=== PATIENT | male | born 1950 | race Caucasian/White ===

== ENCOUNTER → 2017-11-03 | Outpatient (CLI) | payer BC, OTHER ==
--- NOTE | 2017-11-03 09:04 | Diagnostic Imaging Report ---
PROCEDURE: MR imaging cervical spine without contrast. TECHNIQUE: Multiplanar, multisequence MR imaging of the cervical spine was performed without contrast. INDICATION: Neck pain and radiculopathy. Comparison is made with prior MRI from 04/01/2016. Curvature of the cervical spine is normal. Minimal retrolisthesis C4 on C5 is noted similar to prior exam. The marrow signal intensity is unremarkable. Joint degenerative disc disease of variable disc space narrowing and desiccation is again noted similar to prior exam. Cervical cord demonstrates normal signal intensity and normal morphology. C2-C3: No central canal or neural foraminal stenosis is identified. C3-C4: Minimal endplate osteophytes are present with no central canal or neuroforaminal stenosis is seen. C4-C5: Disc osteophyte complex does flatten the ventral thecal sac. No central canal stenosis is seen. There does appear to be spbu-pt-plaezbwg bilateral neuroforaminal stenosis. C5-C6: Broad-based disc/osteophyte complex flattens the ventral thecal sac. There is also uncovertebral joint degenerative change resulting in significant right neuroforaminal stenosis. Mild left neuroforaminal stenosis is seen. C6-C7: Broad-based disc/osteophyte complex indents the ventral thecal sac but central canal is patent. There is moderate bilateral neuroforaminal stenosis. C7-T1: Unremarkable. IMPRESSION: Cervical spondylosis with multilevel neuroforaminal stenosis described above by level above. No central canal stenosis is identified. Dictated by: Dictated on workstation # [id number]
== END ==
LOC: RAD 07:37
PROVIDERS: ATTEND Pain Medicine Interventional Pain Medicine
DX: M48.02 Spinal stenosis, cervical region (principal); M50.10 Cervical disc disorder with radiculopathy, unspecified cervical region; M47.22 Other spondylosis with radiculopathy, cervical region
CPT/HCPCS: 72141

== ENCOUNTER 2018-12-15 14:05 | Outpatient (RCR) | payer OTHER | END 2018-12-22 17:00 | disposition home or self-care (01) | PROVIDERS: ATTEND Nurse Practitioner Family | DX: M79.645 Pain in left finger(s) (principal); Z98.890 Other specified postprocedural states ==

== ENCOUNTER 2019-09-27 05:40 | Outpatient (CLI) | payer OTHER ==
[~2019-09-27] VITALS: Ht 165.1 cm; Wt 78.6 kg
[2019-09-27] MEDS ORDERED: MELO15TA39 PO (14:54)
[2019-10-01] MEDS ORDERED: HYDR-3812 PO (08:11)
[2019-10-01] MEDS ORDERED: HYOS0.1283 SL (09:24)
== END 2019-09-27 14:55 | disposition home or self-care (01) ==
LOC: PREOP 05:40
PROVIDERS: ATTEND Internal Medicine
DX: Z01.818 Encounter for other preprocedural examination (principal)

== ENCOUNTER 2020-03-25 08:31 | Emergency (ER) | payer OTHER ==
[~2020-03-25] VITALS: Ht 167 cm; Wt 76.1 kg
[~2020-03-25 08:31] MED LIST: ACHD5005 PO; HYOS0.1283 SL; MELO15TA39 PO
--- NOTE | 2020-03-25 09:32 | ED Upper Extremity ---
General Chief Complaint: Laceration Stated Complaint: R ELBOW LAC Nursing Triage Note: ARRIVED VIA AMB TO ROOM 10. STATES ABOUT 2 WEEKS AGO HE HAD SURGERY ON HIS RIGHT ELBOW. STICHES WERE OUT. LAST NIGHT AT APPX 8PM HE FELL OPENING UP SUTURE SITE. Nursing Sepsis Screen: No Definite Risk Source: patient Exam Limitations: no limitations (FABIOLA MCDONALD) History of Present Illness Date Seen by Provider: Mar 25, 2020 Time Seen by Provider: 09:08 (FABIOLA MCDONALD) Initial Comments Here with report of wound opening up to the right elbow after falling last night at about 8 PM. States that he was really tired but got up to go to the bathroom and fell onto his right arm. He had surgery on the arm 2 weeks ago for carpal tunnel release. Sutures had been placed but were removed and were doing fine. He has had no wound problems. Did have recent surgery on the left arm for the same thing and has sutures in place there. No problems with those wounds. Denies hitting his head or significant injury during the fall except for the wound opened up. He covered that with a dressing and went ahead and went to bed. Arrives here this morning due to the wound being opened. Denies foul-smelling drainage or significant pain. Follows with Dr. Serafin neff for these surgical procedures and has appointment with him on April 06. Currently on cephalexin 4 times a day after the other surgery. Onset: yesterday Severity: mild Pain/Injury Location: right elbow Method of Injury: fell, other (wound dehiscence) Modifying Factors: Improves With Rest (MARIA LUISA MCGREGOR MD) Allergies and Home Medications Allergies Uncoded Allergies: steroid eye drop (Allergy, Unknown, affected nervous system, 09/27/19) Home Medications Hydrocodone Bit/Acetaminophen 1 Each Tablet, 1 TAB PO Q4-6HR, (Reported) Hyoscyamine Sulfate 0.125 Mg Tab.subl, 0.125 MG SL DAILY Prescribed by: JENNIE GALICIA on 10/01/19 0924 Meloxicam 15 Mg Tablet, 15 MG PO DAILY, (Reported) Patient Home Medication List Home Medication List Reviewed: Yes (MARIA LUISA MCGREGOR MD) Review of Systems Constitutional: No chills, No fever Respiratory: no symptoms reported Cardiovascular: no symptoms reported Musculoskeletal: no symptoms reported Skin: see HPI, change in color (few scattered bruises to the right arm), lesions (MARIA LUISA MCGREGOR MD) Past Qcgqsul-Epqekv-Srwtgv Hx Past Med/Social Hx: Reviewed Nursing Past Med/Soc Hx (MARIA LUISA MCGREGOR MD) Patient Social History Alcohol Use: Occasionally Uses Alcohol Beverage of Choice: Beer Recreational Drug Use: No Smoking Status: Current Someday Smoker Recent Foreign Travel: No Contact w/Someone Who Travel: No Recent Infectious Disease Expo: No Recent Hopitalizations: No (FABIOLA MCDONALD [facility]) Seasonal Allergies Seasonal Allergies: No ([facility] Past Medical History Surgeries: Yes (hiatal hernia, left hand sx) Gallbladder, Orthopedic Respiratory: No Cardiac: No Neurological: No Genitourinary: No Gastrointestinal: No Musculoskeletal: Yes Arthritis, Chronic Back Pain Endocrine: No HEENT: No Cancer: No Psychosocial: No Integumentary: No Blood Disorders: No (FABIOLA MCDONALD [facility]) Surgeries: Yes Orthopedic (MARIA LUISA MCGREGOR MD) Physical Exam Vital Signs Vital Signs - First Documented 03/25/20 08:50 Temp 36.3 Pulse 72 Resp 16 B/P (MAP) 174/98 (123) Pulse Ox 98 O2 Delivery Room Air (MARIA LUISA MCGREGOR MD) Vital Signs Capillary Refill : Less Than 3 Seconds (FABIOLA MCDONALD [facility]) Height, Weight, BMI Height: '" Weight: lbs. oz. kg; 27.00 BMI Method: ([facility] General Appearance: WD/WN, no apparent distress Cardiovascular: regular rate, rhythm, no murmur Respiratory: lungs clear, normal breath sounds Elbow/Forearm: Right, soft tissue tenderness (4 cm wound dehiscence to the m edial aspect right elbow at previous surgical site. Not bleeding. No obvious signs of infection.) (MARIA LUISA MCGREGOR MD) Procedures/Interventions Wound Location: Upper Extremities Wound Length (cm): 4 Wound's Depth, Shape: linear, sub Q Wound Explored: no foreign body removed Irrigated w/ Saline (ccs): 1000 Betadine Prep?: No Anesthesia: 1% Lidocaine Volume Anesthetic (ccs): 8 Wound Debrided: minimal Suture: Ethlion Suture Size: 4-0 Number of Sutures: 3 Sterile Dressing Applied?: Yes Progress Pt tolerated procedure well. No complications. Minimal bleeding during the procedure which was controlled with applying pressure. Triple antibiotic ointment was applied to wound after suturing and sterile dressing was applied. (FABIOLA MCDONALD) Progress/Results/Core Measures Results/Orders Vital Signs/I&O 03/25/20 08:50 Temp 36.3 Pulse 72 Resp 16 B/P (MAP) 174/98 (123) Pulse Ox 98 O2 Delivery Room Air (MARIA LUISA MCGREGOR MD) Blood Pressure Mean: 123 Progress Progress Note : Progress Note Seen and evaluated. Wound evaluated. I did confirm that he is on cephalexin 4 times a day and has just started that dosing. He has several days left. Plan is to achieve anesthesia and flush the wound copiously with sterile saline and loosely close it given that it has been open for 12 hours. Wound closed by med student under my direct supervision. Tolerated procedure well with no complications. Discharged home with return precautions. Patient verbalize understanding instructions and agreement with plan. (MARIA LUISA MCGREGOR MD) Departure Impression Primary Impression: Surgical wound dehiscence Qualified Codes: T81.31XA - Disruption of external operation (surgical) wound, not elsewhere classified, initial encounter Disposition: 01 HOME, SELF-CARE Condition: Improved Departure-Patient Inst. Decision time for Depature: 09:58 (MARIA LUISA MCGREGOR MD) Referrals: JENNIE GALICIA MD (PCP/Family) Primary Care Physician Patient Instructions: Laceration Repair With Stitches (DC) Add. Discharge Instructions: All discharge instructions reviewed with patient and/or family. Voiced understanding. Sutures out in 10-12 days. You may have that done at Dr. Stokes's office or return to the emergency department. The wound was closed loosely to allow for drainage if infection ensues. You may gently wash wound once or twice daily and apply a light coat of antibiotic and cover with dressing. Keep this covered for the next week or so at least to allow for healing. Return for worse pain, swelling, redness, foul-smelling drainage, fever, red streaks up the arm or other concerns as needed. You should call Dr. Stokes to let him know that the wound opened up and let him know that it was closed loosely. Follow-up with him as indicated. FABIOLA MCDONALD [facility] Mar 25, 2020 09:32 MARIA LUISA MCGREGOR MD Mar 25, 2020 09:57
--- NOTE | 2020-03-25 10:09 | NUR ---
DENIES NEEDS AT THIS TIME.
[2020-03-25] MEDS ORDERED: TETANUS,DIPTH,PERTUSS P/F (BOOSTRIX) 0.5 ML VIAL IM ONE (10:30)
[2020-03-25 10:34] VITALS: BP 174/98
== END 2020-03-25 10:34 | disposition home or self-care (01) ==
LOC: EDUNIT# 08:31 → ER 08:32
DX: T81.33XA Disruption of traumatic injury wound repair, initial encounter (principal); G89.29 Other chronic pain; M54.9 Dorsalgia, unspecified; F17.200 Nicotine dependence, unspecified, uncomplicated; Z23 Encounter for immunization; Z88.8 Allergy status to other drugs, medicaments and biological substances; W18.39XA Other fall on same level, initial encounter
CPT/HCPCS: 12032; 90715

== ENCOUNTER 2021-02-18 15:57 | Observation (INO) | payer MEDICARE, OTHER ==
[~2021-02-18] VITALS: Ht 167.7 cm; Wt 71.3 kg
[2021-02-18] MEDS ORDERED: ASPIRIN 81 MG CHEW (CHILDREN'S ASA) PO ONE (16:00)
[2021-02-18 16:12] LABS: BASOPHILS % (AUTO) 1 % (0-10); EOSINOPHILS # (AUTO) 0.3 10^3/uL (0.0-0.3); EOSINOPHILS % (AUTO) 4 % (0-10); HEMATOCRIT 42 % (40-54); HEMOGLOBIN 14.5 g/dL (13.3-17.7); LYMPHOCYTES # (AUTO) 2.3 10^3/uL (1.0-4.0); LYMPHOCYTES % (AUTO) 28 % (12-44); MEAN CORPUSCULAR HEMOGLOBIN 33 pg (25-34); MEAN CORPUSCULAR HGB CONC 34 g/dL (32-36); MEAN CORPUSCULAR VOLUME 95 fL (80-99); MEAN PLATELET VOLUME 11.6 fL (9.0-12.2); MONOCYTES # (AUTO) 0.7 10^3/uL (0.0-1.0); MONOCYTES % (AUTO) 9 % (0-12); NEUTROPHILS # (AUTO) 4.7 10^3/uL (1.8-7.8); NEUTROPHILS % (AUTO) 58 % (42-75); PLATELET COUNT 172 10^3/uL (130-400); WHITE BLOOD COUNT 8.1 10^3/uL (4.3-11.0)
[2021-02-18] MEDS ORDERED: NITROGLYCERIN 0.4 MG SL TABS BTL 25'S SL ONE (16:13)
--- NOTE | 2021-02-18 16:14 | ED Chest Pain ---
General Stated Complaint: CHEST TIGHTNESS/TIRED Source: patient Exam Limitations: no limitations History of Present Illness Date Seen by Provider: Feb 18, 2021 Time Seen by Provider: 16:10 Initial Comments With fatigue and left-sided chest discomfort. He wakes up at about 130 every morning because he goes to work at [employer] at 430. 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 He has some persistent dull pain on the left side of his chest. No personal history of heart disease. Timing/Duration: 1-3 hours Severity/Quality: moderate Location: central Radiation: no radiation ASA po AIRPORT RAMP ATTENDANT: No NTG SL AIRPORT RAMP ATTENDANT: No Allergies and Home Medications Allergies Uncoded Allergies: steroid eye drop (Allergy, Unknown, affected nervous system, 09/27/19) Home Medications Hydrocodone Bit/Acetaminophen 1 Each Tablet, 1 TAB PO Q4-6HR, (Reported) Hyoscyamine Sulfate 0.125 Mg Tab.subl, 0.125 MG SL DAILY Prescribed by: JENNIE GALICIA on 10/01/19 0924 Meloxicam 15 Mg Tablet, 15 MG PO DAILY, (Reported) Patient Home Medication List Home Medication List Reviewed: Yes Review of Systems Review of Systems Constitutional: see HPI EENTM: No Symptoms Reported Respiratory: No Symptoms Reported Cardiovascular: See HPI, Chest Pain Gastrointestinal: No Symptoms Reported Genitourinary: No Symptoms Reported Musculoskeletal: no symptoms reported Skin: no symptoms reported Psychiatric/Neurological: No Symptoms Reported Endocrine: No Symptoms Reported Hematologic/Lymphatic: No Symptoms Reported Past Cmdklvf-Ttlbgg-Qtcxwg Hx Seasonal Allergies Seasonal Allergies: No Past Medical History Surgeries: Yes Orthopedic Respiratory: No Cardiac: No Neurological: No Genitourinary: No Gastrointestinal: No Musculoskeletal: Yes Arthritis, Chronic Back Pain Endocrine: No HEENT: No Cancer: No Psychosocial: No Integumentary: No Blood Disorders: No Physical Exam Vital Signs Capillary Refill : Height, Weight, BMI Height: '" Weight: lbs. oz. kg; 27.00 BMI Method: General Appearance: No Apparent Distress, WD/WN HEENT: PERRL/EOMI, TMs Normal Respiratory: No Accessory Muscle Use, No Respiratory Distress Cardiovascular: Regular Rate, Rhythm, Normal Peripheral Pulses Gastrointestinal: Normal Bowel Sounds, Non Tender, Soft Extremity: Normal Capillary Refill, Normal Inspection Neurologic/Psychiatric: Alert, Oriented x3 Skin: Normal Color, Warm/Dry Procedures/Interventions Suture Size: 4-0 Progress/Results/Core Measures Results/Orders Lab Results Laboratory Tests Test 02/18/21 16:00 Range/Units White Blood Count 8.1 4.3-11.0 10^3/uL Red Blood Count 4.45 4.30-5.52 10^6/uL Hemoglobin 14.5 13.3-17.7 g/dL Hematocrit 42 40-54 % Mean Corpuscular Volume 95 80-99 fL Mean Corpuscular Hemoglobin 33 25-34 pg Mean Corpuscular Hemoglobin Concent 34 32-36 g/dL Red Cell Distribution Width 13.1 10.0-14.5 % Platelet Count 172 130-400 10^3/uL Mean Platelet Volume 11.6 9.0-12.2 fL Immature Granulocyte % (Auto) 0 % Neutrophils (%) (Auto) 58 42-75 % Lymphocytes (%) (Auto) 28 12-44 % Monocytes (%) (Auto) 9 0-12 % Eosinophils (%) (Auto) 4 0-10 % Basophils (%) (Auto) 1 0-10 % Neutrophils # (Auto) 4.7 1.8-7.8 10^3/uL Lymphocytes # (Auto) 2.3 1.0-4.0 10^3/uL Monocytes # (Auto) 0.7 0.0-1.0 10^3/uL Eosinophils # (Auto) 0.3 0.0-0.3 10^3/uL Basophils # (Auto) 0.0 0.0-0.1 10^3/uL Immature Granulocyte # (Auto) 0.0 0.0-0.1 10^3/uL Prothrombin Time 13.2 12.2-14.7 SEC INR Comment 1.0 0.8-1.4 Activated Partial Thromboplast Time 28 24-35 SEC D-Dimer 0.37 0.00-0.49 UG/ML Sodium Level 137 135-145 MMOL/L Potassium Level 4.3 3.6-5.0 MMOL/L Chloride Level 105 98-107 MMOL/L Carbon Dioxide Level 19 L 21-32 MMOL/L Anion Gap 13 5-14 MMOL/L Blood Urea Nitrogen 9 7-18 MG/DL Creatinine 0.84 0.60-1.30 MG/DL Estimat Glomerular Filtration Rate > 60 BUN/Creatinine Ratio 11 Glucose Level 97 70-105 MG/DL Calcium Level 8.6 8.5-10.1 MG/DL Corrected Calcium 8.6 8.5-10.1 MG/DL Magnesium Level 2.0 1.6-2.4 MG/DL Total Bilirubin 0.5 0.1-1.0 MG/DL Aspartate Amino Transf (AST/SGOT) 19 5-34 U/L Alanine Aminotransferase (ALT/SGPT) 22 0-55 U/L Alkaline Phosphatase 44 40-136 U/L Myoglobin 42.4 10.0-92.0 NG/ML Troponin I < 0.028 <0.028 NG/ML B-Type Natriuretic Peptide 28.3 <100.0 PG/ML Total Protein 6.9 6.4-8.2 GM/DL Albumin 4.0 3.2-4.5 GM/DL My Orders Orders - PRASANTH ALEXIS CLERICAL ADVISER Cbc With Automated Diff (02/18/21 15:59) Magnesium (02/18/21 15:59) Chest 1 View, Ap/Pa Only (02/18/21 15:59) Ekg Tracing (02/18/21 15:59) Comprehensive Metabolic Panel (02/18/21 15:59) Myoglobin Serum (02/18/21 15:59) Protime With Inr (02/18/21 15:59) Partial Thromboplastin Time (02/18/21 15:59) O2 (02/18/21 15:59) Monitor-Rhythm Ecg Trace Only (02/18/21 15:59) Lipid Panel (02/19/21 06:00) Ed Iv/Invasive Line Start (02/18/21 15:59) BNP (02/18/21 15:59) Fibrin Degradation Products (02/18/21 15:59) Troponin I (02/18/21 15:59) Aspirin Chewable Tablet (Baby Aspirin Ch (02/18/21 16:00) Nitroglycerin 0.4 Mg Btl 25's (Nitrostat (02/18/21 16:13) Nitroglycerin 0.4 Mg Btl 25's (Nitrostat (02/18/21 16:45) Clopidogrel Tablet (Plavix Tablet) (02/18/21 17:00) Enoxaparin Injection (Lovenox Injection) (02/18/21 17:00) Medications Given in ED Current Medications Medications Dose Ordered Sig/Santino Route Start Time Stop Time Status Last Admin Dose Admin Aspirin 324 mg ONCE ONCE PO 02/18/21 16:00 02/18/21 16:01 DC 02/18/21 16:15 324 MG Nitroglycerin 0.4 mg STK-MED ONCE SL 02/18/21 16:13 02/18/21 16:15 DC 02/18/21 16:17 0.4 MG Departure Communication (Admissions) His chest pain is resolved after 2 sublingual nitroglycerin. Will admit after discussion with Dr. Nguyễn, stress test in the morning. Impression Primary Impression: Chest pain Disposition: ADMITTED INPATIENT Condition: Stable Admissions Decision to Admit Reason: Admit from ER (General) Decision to Admit/Date: Feb 18, 2021 Time/Decision to Admit Time: 17:02 Departure-Patient Inst. Referrals: JENNIE GALICIA MD (PCP/Family) Primary Care Physician PRASANTH ALEXIS APRN Feb 18, 2021 16:14
[2021-02-18 16:24] LABS: PROTHROMBIN TIME PATIENT 13.2 SEC (12.2-14.7)
[2021-02-18 16:28] LABS: CHLORIDE 105 MMOL/L (98-107); POTASSIUM 4.3 MMOL/L (3.6-5.0); SODIUM 137 MMOL/L (135-145)
[2021-02-18 16:29] LABS: CALCIUM 8.6 MG/DL (8.5-10.1)
[2021-02-18 16:30] LABS: GLUCOSE 97 MG/DL (70-105); TOTAL PROTEIN 6.9 GM/DL (6.4-8.2)
[2021-02-18 16:31] LABS: CARBON DIOXIDE 19 MMOL/L (21-32)
--- NOTE | 2021-02-18 16:31 | Diagnostic Imaging Report ---
INDICATION: Chest pain. COMPARISON: Prior examination from 10/26/2012. FINDINGS: Heart size is normal. No pleural effusion, pneumothorax or pneumonia. Mediastinum is unremarkable. IMPRESSION: No acute cardiopulmonary abnormality. Dictated by: Dictated on workstation # [id number]
[2021-02-18 16:32] LABS: BILIRUBIN,TOTAL 0.5 MG/DL (0.1-1.0)
[2021-02-18 16:34] LABS: ALKALINE PHOSPHATASE 44 U/L (40-136); CREATININE SERUM 0.84 MG/DL (0.60-1.30); GFR ESTIMATED > 60
[2021-02-18 16:35] LABS: BUN/CREATININE RATIO 11
[2021-02-18 16:37] LABS: ALANINE AMINOTRANSFERASE 22 U/L (0-55)
[2021-02-18] MEDS ORDERED: NITROGLYCERIN 0.4 MG SL TABS BTL 25'S SL PRN ×2 (16:45→21:15)
[2021-02-18] MEDS ORDERED: CLOPIDOGREL 300 MG (PLAVIX) TABLET PO ONE (17:00)
[2021-02-18] MEDS ORDERED: ENOXAPARIN 80 MG/0.8 ML (LOVENOX) SYR SC ONE (17:00)
[2021-02-18] MEDS ORDERED: LACTATED RINGERS 1,000 ML IV ONE (17:42)
[2021-02-18] MEDS: LACTATED RINGERS 1,000 ML IV SCH (17:46)
[2021-02-18] MEDS ORDERED: GABA-486 PO (18:13)
[2021-02-18 18:15] VITALS: BP 132/78
[2021-02-18 20:00] VITALS: BP 111/63
[2021-02-18] MEDS ORDERED: ONDANSETRON 4 MG/2 ML (SDV) Z0FRAN IVP PRN (21:15)
[2021-02-18] MEDS ORDERED: morphine INJ 4 MG/ML 1 ML (VIAL/SYRINGE) IV PRN (21:15)
[2021-02-19] VITALS (11 sets, daily range): BP systolic 106–150; BP diastolic 68–90
[2021-02-19] MEDS: LACTATED RINGERS 1,000 ML IV SCH ×2 (03:28→13:25)
[2021-02-19 05:15] LABS: TRIGLYCERIDES 95 MG/DL (<150); VLDL CHOLESTEROL 19 MG/DL (5-40)
[2021-02-19 05:19] LABS: CHOLESTEROL 177 MG/DL (< 200)
[2021-02-19 05:20] LABS: HDL CHOLESTEROL 51 MG/DL (40-60)
[2021-02-19] MEDS ORDERED: CATHETER FLUSH 10 ML SYR IV PRN (07:00)
[2021-02-19] MEDS ORDERED: ASPIRIN E.C. 81 MG (ECOTRIN) TAB PO SCH (09:00)
[2021-02-19] MEDS ORDERED: REGADENOSON 0.4 MG/5 ML SYR (LEXISCAN) IV ONE (09:00)
--- NOTE | 2021-02-19 09:55 | Consultation-Cardiology ---
HPI-Cardiology Cardiology Consultation Date of Consultation 02/19/21 Date of Admission Time Seen by Provider: 09:54 Indication: Chest pain HPI 70 years old gentleman with a history of hypertension, has been having increasing fatigue with exertion which has been worsening recently. Started to have chest pain yesterday afternoon, came into the emergency room for evaluation described the pain as dull in nature on the left side radiating to the back, has been having increasing dyspnea on exertion. Cardiac enzymes did not show any acute abnormality. Home Medications & Allergies Allergies: Uncoded Allergies: steroid eye drop (Allergy, Unknown, affected nervous system, 09/27/19) Home Medication List Reviewed: Yes QRZ-[id number]-Xgxtop Hx Patient Social History Marital Status: Employed/Student: employed Smoking Status: Current Everyday Smoker Recent Hopitalizations: No Have you traveled recently?: No Alcohol Use?: Yes Past Medical History Discussed below Family Medical History Family Medical Hx Noncontributory Review of Systems-General Review of Systems Constitutional: see HPI EENTM: see HPI, no symptoms reported Respiratory: see HPI; No cough; dyspnea on exertion; No hemoptysis, No orthopnea, No phlegm, No short of breath, No stridor, No wheezing, No other Cardiovascular: see HPI, chest pain; No edema, No Hx of Intervention, No palpitations, No syncope, No vascular heart diseas, No other Gastrointestinal: no symptoms reported, see HPI Genitourinary: no symptoms reported, see HPI Musculoskeletal: no symptoms reported Skin: no symptoms reported Psychiatric/Neurological: No Symptoms Reported Reviewed Test Results Reviewed Test Results Lab Laboratory Tests Test 02/18/21 16:00 02/18/21 21:05 02/19/21 04:13 Range/Units White Blood Count 8.1 4.3-11.0 10^3/uL Red Blood Count 4.45 4.30-5.52 10^6/uL Hemoglobin 14.5 13.3-17.7 g/dL Hematocrit 42 40-54 % Mean Corpuscular Volume 95 80-99 fL Mean Corpuscular Hemoglobin 33 25-34 pg Mean Corpuscular Hemoglobin Concent 34 32-36 g/dL Red Cell Distribution Width 13.1 10.0-14.5 % Platelet Count 172 130-400 10^3/uL Mean Platelet Volume 11.6 9.0-12.2 fL Immature Granulocyte % (Auto) 0 % Neutrophils (%) (Auto) 58 42-75 % Lymphocytes (%) (Auto) 28 12-44 % Monocytes (%) (Auto) 9 0-12 % Eosinophils (%) (Auto) 4 0-10 % Basophils (%) (Auto) 1 0-10 % Neutrophils # (Auto) 4.7 1.8-7.8 10^3/uL Lymphocytes # (Auto) 2.3 1.0-4.0 10^3/uL Monocytes # (Auto) 0.7 0.0-1.0 10^3/uL Eosinophils # (Auto) 0.3 0.0-0.3 10^3/uL Basophils # (Auto) 0.0 0.0-0.1 10^3/uL Immature Granulocyte # (Auto) 0.0 0.0-0.1 10^3/uL Prothrombin Time 13.2 12.2-14.7 SEC INR Comment 1.0 0.8-1.4 Activated Partial Thromboplast Time 28 24-35 SEC D-Dimer 0.37 0.00-0.49 UG/ML Sodium Level 137 135-145 MMOL/L Potassium Level 4.3 3.6-5.0 MMOL/L Chloride Level 105 98-107 MMOL/L Carbon Dioxide Level 19 L 21-32 MMOL/L Anion Gap 13 5-14 MMOL/L Blood Urea Nitrogen 9 7-18 MG/DL Creatinine 0.84 0.60-1.30 MG/DL Estimat Glomerular Filtration Rate > 60 BUN/Creatinine Ratio 11 Glucose Level 97 70-105 MG/DL Calcium Level 8.6 8.5-10.1 MG/DL Corrected Calcium 8.6 8.5-10.1 MG/DL Magnesium Level 2.0 1.6-2.4 MG/DL Total Bilirubin 0.5 0.1-1.0 MG/DL Aspartate Amino Transf (AST/SGOT) 19 5-34 U/L Alanine Aminotransferase (ALT/SGPT) 22 0-55 U/L Alkaline Phosphatase 44 40-136 U/L Myoglobin 42.4 10.0-92.0 NG/ML Troponin I < 0.028 < 0.028 <0.028 NG/ML B-Type Natriuretic Peptide 28.3 <100.0 PG/ML Total Protein 6.9 6.4-8.2 GM/DL Albumin 4.0 3.2-4.5 GM/DL Triglycerides Level 95 <150 MG/DL Cholesterol Level 177 < 200 MG/DL LDL Cholesterol Direct 115 1-129 MG/DL VLDL Cholesterol 19 5-40 MG/DL HDL Cholesterol 51 40-60 MG/DL Physical Exam Physical Exam Vital Signs Vital Signs - First Documented 02/18/21 16:00 Temp 36.6 Pulse 71 Resp 18 B/P (MAP) 146/78 (100) Pulse Ox 96 O2 Delivery Room Air Capillary Refill : Less Than 3 Seconds Height, Weight, BMI Height: '" Weight: lbs. oz. kg; 25.35 BMI Method: General Appearance: No Apparent Distress, WD/WN Eyes: Bilateral Eye Normal Inspection, Bilateral Eye PERRL, Bilateral Eye EOMI HEENT: PERRL/EOMI, TMs Normal Neck: Full Range of Motion, Normal Inspection, Non Tender, Supple, Carotid Bruit Respiratory: No Accessory Muscle Use, No Respiratory Distress Cardiovascular: Regular Rate, Rhythm, Normal Peripheral Pulses Gastrointestinal: Normal Bowel Sounds, Non Tender, Soft Back: Normal Inspection, No CVA Tenderness, No Vertebral Tenderness Extremity: Normal Capillary Refill, Normal Inspection Neurologic/Psychiatric: Alert, Oriented x3 Skin: Normal Color, Warm/Dry Lymphatic: No Adenopathy A/P-Cardiology Admission Diagnosis Chest pain Coronary artery disease Tobaccoism Assessment/Plan Chest pain nonspecific etiology, resembling angina. Coronary artery disease, patient underwent stress test today, was able to exercise for 6 minutes on Jose protocol, test was terminated due to back pain and leg pain and converted to Lexiscan Myoview stress test. During exercise patient had nondiagnostic EKG changes, review of his SPECT images showed mild ischemia at the mid to apical inferior wall. I will proceed with cardiac catheterization possible PTCA Tobaccoism, educated on smoking cessation Hypertension, starting low-dose beta-blockers Hyperlipidemia, monitor lipids Clinical Quality Measures AMI/AHF: ASA po Prior to arrival: ROB San MD Feb 19, 2021 09:55
--- NOTE | 2021-02-19 09:59 | Cardiology Stress Test Report ---
Stress Test Report Date of Procedure/Referring: Date of Procedure: Feb 19, 2021 PCP Namrata Haney MD Admitting Physician Addison Miles MD Indications: Chest pain Baseline Heart Rate: 53 Baseline Blood Pressure: Blood Pressure Systolic: 150 Blood Pressure Diastolic: 82 Baseline Vitals Vital Signs Date Time Temp Pulse Resp B/P (MAP) Pulse Ox O2 Delivery O2 Flow Rate FiO2 02/18/21 16:00 36.6 71 18 146/78 (100) 96 02/18/21 16:00 Room Air Baseline EKG: Baseline EKG: Normal sinus rhythm Summary After explaining the procedure to the patient, he signed a consent and then brought to the stress nuclear laboratory. Patient initially was scheduled for exercise Myoview stress test, was able to exercise for 6 minutes on standard Jose protocol, had back pain and leg pain was unable to exercise any further, during exercise they were EKG changes with ST elevation in the anterior wall. Test was terminated and converted to Lexiscan Myoview stress test Patient received 0.4 mg Lexiscan for stress test, ECG, heart rate and blood pressure were monitored continuously. Resting and stress dose of radio tracer were injected, imaging was acquired and reviewed in short axis, horizontal long axis and vertical long axis views. TID: 0.92 SSS: 3 SDS: 3 EF: 71 1. Patient was unable to exercise beyond 6 minutes due to back pain and leg pain, test was converted to Lexiscan Myoview stress test 2. Nondiagnostic EKG changes with exercise return to baseline during recovery 3. Patient tolerated Lexiscan well with mild chest pain and shortness of breath 4. Diaphragmatic attenuation with mild ischemia involving the mid to apical inferior wall with mild reversibility 5. Normal left ventricular size, EF 51% ROB LESTER MD Feb 19, 2021 09:59
--- NOTE | 2021-02-19 10:00 | Conscious Sedation/ASA ---
Conscious Sedation Pre-Proced Time 10:00 ASA Score 3 For ASA 3 and 4: Consider anesthesia and medical clearance. Also, for patients with a history of failed moderate sedation consider anesthesia. Airway Lungs Heart ASA score ASA 1: a normal healthy patient ASA 2: a patient with a mild systemic disease (mid diabetes, controlled hypertension, obesity x ASA 3: a patient with a severe systemic disease that limits activity (angina, COPD, prior Myocardial infarction) ASA 4: a patient with an incapacitating disease that is a constant threat to life (CHF, renal failure) ASA 5: a moribund patient not expected to survive 24 hrs. (ruptured aneurysm) ASA 6: a declared brain- patient whose organs are being harvested. For emergent operations, add the letter E after the classification Mallampati Classification Grade 3 Sedation Plan Analgesia, Amnesia, Plan communicated to team members, Discussed options with patient/fam, Discussed risks with patient/fam The patient is an appropriate candidate to undergo the planned procedure, sedation, and anesthesia. The patient immediately re-assessed prior to indication. ROB LETSER MD Feb 19, 2021 10:00
[2021-02-19] MEDS ORDERED: MIDAZOLAM 5 MG/5 ML (VERSED) VIAL ONE (11:04)
[2021-02-19] MEDS ORDERED: fentaNYL INJ 100 MCG/2 ML AMP ONE (11:04)
[2021-02-19] MEDS ORDERED: VERAPAMIL 5 MG/2 ML (CALAN) VIAL IV ONE (11:04)
[2021-02-19] MEDS ORDERED: HEParin (CATH LAB) 2,000 ML IV ONE (11:05)
[2021-02-19] MEDS ORDERED: HEParin 1000 UNIT/ML (10ML VIAL) FOR BOLUS ONE (11:05)
[2021-02-19] MEDS ORDERED: LIDOCAINE 1% INJ 20 ML 20 ML VIAL ONE (11:05)
[2021-02-19] MEDS ORDERED: NITRO DRIP 25000 MCG/D5W 250 ML IV ONE (11:08)
[2021-02-19] MEDS ORDERED: PANT40SU PO (11:30)
[2021-02-19] MEDS ORDERED: ASPI-1238 PO (11:30)
[2021-02-19] MEDS ORDERED: NS IV 1000 ML 1,000 ML IV SCH (11:30)
--- NOTE | 2021-02-19 11:30 | Discharge Inst-Post CATH ---
Discharge Inst-CATH/EP Problems Reviewed?: Yes Post Cardiac Cath/EP D/C Inst Follow Up/Plan Appointment with Dr. Combs's office in 2 to 4 weeks <b>CARDIAC CATH/EP PROCEDURE DISCHARGE INSTRUCTIONS</b> ACTIVITY * Go Home directly and rest. * Limit activity of the leg (or wrist if it was used) for 7 days including aer obics, swimming, jogging, bicycling, etc. * Restrict stair-climbing for 7 days if possible, if not, climb up with your non-cath leg, then bring together on the same step. * Avoid lifting, pushing, pulling or excessive movement of the affected extremi ty for 7 days. * Customary sexual activity may be resumed after 2 days-use caution not to use a position that strains or causes pain to the affected extremity. * No driving for 24 hours. * NO SMOKING. * Avoid straining for bowel movements for 7 days. * Gentle walking on level ground is allowed. * Returning to work will depend on the type of procedure and the results. Your doctor will discuss this with you. CALL YOUR DOCTOR FOR ANY OF THE FOLLOWING: *If bleeding from the puncture site occurs- Apply gentle pressure to site with clean cloth and call your doctor or EMS. * If a knot or lump forms under the skin, increases in size, or causes pain. * If bruising appears to be worsening or moving further down your leg instead of disappearing. * Temperature above 101 F. CARE OF YOUR GROIN INCISION; * Bruising or purple discoloration of the skin near the puncture site is common. * You may shower only, no bathtub bathing for 5 days. Be careful to avoid slipping as your leg may feel stiff. * If a closure device was used on your femoral artery, please see the attached guide regarding care of the device and your leg. * Leave dressing on FOR 24 hours. CARE OF YOUR WRIST INCISION; * Bruising or purple discoloration of the skin near the puncture site is common. * You may shower. * DO NOT submerge wrist. * Leave dressing on FOR 24 hours. ROB COMBS MD Feb 19, 2021 11:30 am
--- NOTE | 2021-02-19 11:34 | Cardiac Cath Report ---
Cardiac Cath Report Physician (s)/[facility] (s) Physician ROB LESTER MD Pre-Procedure Diagnosis Pre-Procedure Diagnosis: Coronary artery disease Post-Procedure Note Procedure Start Date: Feb 19, 2021 Name of Procedure: Left heart catheterization Aortic arch angiogram Findings/Procedure Note PROCEDURE NOTE: After explaining the procedure to the patient, all pros and cons were explained, all questions were answered. The patient signed the consent and then he was placed on the cardiac catheterization laboratory. Groin was prepped SL fashion local anesthesia was used. Sheath placed in the right radial artery, [place] catheter was advanced to the left ventricular cavity, pressure was measured, pullback LV to aorta was done, intubated the right and left coronary system and angiogram was done then I pulled the catheter back to the aortic arch and did aortic arch angiogram due to the heavy calcification noted in the arch. At the end of the procedure sheath and catheter were removed and vascular band deployed FINDINGS: Hemodynamics LV 103/5, end-diastolic pressure of 5 Aorta 95/58 mean of 74 ANATOMY: Left Main is free of obstructive disease Left Anterior Descending has mild disease, nonobstructive disease Left Circumflex has mild disease nonobstructive disease Right Coronary Artery is dominant artery with mild disease nonobstructive disease LV Gram was not done, pressure was measured Aorta evaluation showed calcification in the aortic arch and high descending aorta, no aneurysm or dissection, normal origin of the brachiocephalic artery, left carotid and left subclavian arteries CONCLUSION: 1. Mild coronary artery disease nonobstructive disease 2. Normal left ventricular end-diastolic pressure 3. Calcification noted in the aortic arch, there is no dissection or aneurysm, normal origin of the great vessels of the neck DISCUSSION AND RECOMMENDATION: Patient will be started on aspirin and Protonix, chest pain is probably noncardiac, abnormal stress test is due to extracardiac attenuation Anesthesia Type: Conscious Sedation Estimated blood loss (mL): 5 ml Contrast Amount: 45 ml Total Radiation Dose: 279 mGy Post-Procedure Diagnosis Post-operative diagnosis: Chest pain Coronary artery disease Hypertension ROB LESTER MD Feb 19, 2021 11:34 am
--- NOTE | 2021-02-19 12:47 | Short Stay Summary-Hospitalist ---
History of Present Illness HPI/Chief Complaint Pt is a 70yoCM with a PMH of tobacco abuse and chronic pain who presented to the ER due to chest heaviness. He states that he woke up yesterday and just didn't feel right. He had chest pressure and fatigue. His daughter called him and he seemed short of breath to here and she decided to bring him in for evaluation. He received two nitro in the Er which resolved his symptoms. He was admitted for further evaluation. His troponins have been negative and by the time I saw him his stress test had been done but not yet read. He denies any further symptoms. Source: patient Date Seen 02/19/21 Time Seen by a Provider: 12:41 Attending Physician Namrata Haney MD PCP Addison Miles MD Referring Physician Date of Admission Feb 18, 2021 at 16:00 Home Medications & Allergies Home Medications Reviewed patient Home Medication Reconciliation performed by pharmacy medication reconciliations morgue technician and/or nursing. Patients Allergies have been reviewed. Allergies Allergies Uncoded Allergies steroid eye drop ( Allergy, Unknown, affected nervous system, 09/27/19) Past Indcqwc-Uevdmn-Ycpfoj Hx Patient Social History Marrital Status: Employed/Student: employed Tobacco Use?: No Tobacco type used: Cigarettes Smoking Status: Current Everyday Smoker Use of E-Cig and/or Vaping dev: No Substance use?: No Alcohol Use?: Yes Alcohol type: Beer Alcohol Frequency: Daily Additional Alcohol Comments: 4 every day Pt feels they are or have been: No Immunizations Up To Date First/Initial COVID19 Vaccinat: NOVEMBER 2020 Second COVID19 Vaccination Kyle: DECEMBER 2020 Seasonal Allergies Seasonal Allergies: No Current Status Advance Directives: No Communicates: Verbally Primary Language: Cymro Preferred Spoken Language: Cymro Is interpretation needed?: No Sensory deficits: Hearing impairment Implanted or Applied Medical D: None Past Medical History Surgeries: Orthopedic Arthritis, Chronic Back Pain Blood Disorders: No Review of Systems Constitutional: No chills, No diaphoresis (but was clammy), No fever; malaise Respiratory: No cough; dyspnea on exertion, short of breath Cardiovascular: chest pain; No edema, No Hx of Intervention, No palpitations Gastrointestinal: no symptoms reported Musculoskeletal: no symptoms reported Skin: no symptoms reported Psychiatric/Neurological: No Symptoms Reported Physical Exam Physical Exam Vital Signs Vital Signs - First Documented 02/18/21 16:00 Temp 36.6 Pulse 71 Resp 18 B/P (MAP) 146/78 (100) Pulse Ox 96 O2 Delivery Room Air Capillary Refill : Less Than 3 Seconds Height, Weight, BMI Height: '" Weight: lbs. oz. kg; 25.35 BMI Method: General Appearance: No Apparent Distress, WD/WN Eyes: Bilateral Eye Normal Inspection, Bilateral Eye PERRL, Bilateral Eye EOMI HEENT: PERRL/EOMI, Moist Mucous Membranes; No Scleral Icterus (L), No Scleral Icterus (R) Neck: Normal Inspection, Supple Respiratory: Lungs Clear, No Accessory Muscle Use, No Respiratory Distress Cardiovascular: Regular Rate, Rhythm, Normal Peripheral Pulses Gastrointestinal: Normal Bowel Sounds, Non Tender, Soft Extremity: Normal Capillary Refill, Normal Inspection Neurologic/Psychiatric: Alert, Oriented x3, Normal Mood/Affect Skin: Normal Color, Warm/Dry Results Results/Procedures Labs Laboratory Tests 02/18/21 16:00 Patient resulted labs reviewed. Imaging: Reviewed Imaging Report Imaging [facility] [place], [place] NAME: KIMBER PICKETT [facility] REC#: [id number] PT STATUS: REG ER : 1950 PHYSICIAN: PRASANTH ALEXIS APRN ADMIT DATE: 02/18/21/ER Signed Date of Exam:02/18/21 CHEST 1 VIEW, AP/PA ONLY INDICATION: Chest pain. COMPARISON: Prior examination from 10/26/2012. FINDINGS: Heart size is normal. No pleural effusion, pneumothorax or pneumonia. Mediastinum is unremarkable. IMPRESSION: No acute cardiopulmonary abnormality. Dictated by: Dictated on workstation # [id number] Dict: 02/18/21 1624 Trans: 02/18/21 165 [facility] [id number] Interpreted by: ERICA JALLOH MD Electronically signed by: ERICA JALLOH MD 02/18/21 1655 Short Stay Diagnosis Discharge Diagnosis-Short Stay Admission Diagnosis chest pain Final Discharge Diagnosis chest pain Conclusion Plan chest pain Stress test done and positive Went to computer lab para professional and minimal CAD Plan to DC home with medical management and outpatient follow up Clinical Quality Measures AMI/AHF: ASA po Prior to arrival: AGUSTO Juan MD Feb 19, 2021 12:47
== END 2021-02-19 14:55 | disposition home or self-care (01) ==
LOC: EDUNIT# 15:57 → ER 15:59 → UNDOADMOB 16:00 → CSD 16:00 → UNDODISOB 02-19 14:57
PROVIDERS: ADMIT Internal Medicine; ATTEND Family Medicine
DX: I25.10 Atherosclerotic heart disease of native coronary artery without angina pectoris (principal); I10 Essential (primary) hypertension; M19.90 Unspecified osteoarthritis, unspecified site; G89.29 Other chronic pain; E78.5 Hyperlipidemia, unspecified; M54.9 Dorsalgia, unspecified; F17.210 Nicotine dependence, cigarettes, uncomplicated; Z79.891 Long term (current) use of opiate analgesic; Z79.899 Other long term (current) drug therapy
CPT/HCPCS: 36221; 71045; 78452; 80053; 80061; 83735; 83874; 83880; 84484; 85025; 85379; 85610; 85730; 93005; 93017; 93041; 93458; 99284; A9502; C1894; G0378; 36415

== ENCOUNTER 2021-12-22 07:46 | Emergency (ER) | payer OTHER ==
[~2021-12-22] VITALS: Ht 162 cm; Wt 72.5 kg
[~2021-12-22 07:46] MED LIST changes: +ASPI-1238 PO; +GABA-486 PO; +PANT40SU PO
[2021-12-22] MEDS ORDERED: ASPIRIN 81 MG CHEW (CHILDREN'S ASA) PO ONE (08:15)
[2021-12-22 08:23] LABS: BASOPHILS % (AUTO) 1 % (0-10); EOSINOPHILS # (AUTO) 0.1 10^3/uL (0.0-0.3); EOSINOPHILS % (AUTO) 1 % (0-10); HEMATOCRIT 45 % (40-54); HEMOGLOBIN 15.6 g/dL (13.3-17.7); LYMPHOCYTES # (AUTO) 1.6 10^3/uL (1.0-4.0); LYMPHOCYTES % (AUTO) 21 % (12-44); MEAN CORPUSCULAR HEMOGLOBIN 33 pg (25-34); MEAN CORPUSCULAR HGB CONC 35 g/dL (32-36); MEAN CORPUSCULAR VOLUME 94 fL (80-99); MEAN PLATELET VOLUME 11.6 fL (9.0-12.2); MONOCYTES # (AUTO) 0.7 10^3/uL (0.0-1.0); MONOCYTES % (AUTO) 8 % (0-12); NEUTROPHILS # (AUTO) 5.4 10^3/uL (1.8-7.8); NEUTROPHILS % (AUTO) 69 % (42-75); PLATELET COUNT 165 10^3/uL (130-400); WHITE BLOOD COUNT 7.8 10^3/uL (4.3-11.0)
[2021-12-22 08:27] LABS: ALBUMIN 4.3 GM/DL (3.2-4.5); POTASSIUM 4.1 MMOL/L (3.6-5.0)
[2021-12-22 08:29] LABS: CALCIUM 9.3 MG/DL (8.5-10.1); INR 0.9 (0.8-1.4); PROTHROMBIN TIME PATIENT 12.8 SEC (12.2-14.7)
[2021-12-22 08:30] LABS: TOTAL PROTEIN 7.4 GM/DL (6.4-8.2)
[2021-12-22 08:32] LABS: BILIRUBIN,TOTAL 1.1 MG/DL (0.1-1.0)
[2021-12-22 08:34] LABS: CREATININE SERUM 0.79 MG/DL (0.60-1.30)
[2021-12-22 08:36] LABS: MAGNESIUM 1.9 MG/DL (1.6-2.4)
--- NOTE | 2021-12-22 08:42 | Diagnostic Imaging Report ---
EXAM: CHEST 1 VIEW, AP/PA ONLY INDICATION: Chest pain. Lethargy. COMPARISON: 02/18/2021. FINDINGS: Normal heart size and central pulmonary vascularity. No focal pulmonary opacity. No pleural effusion or pneumothorax. No acute osseous findings. IMPRESSION: No acute cardiopulmonary findings. Dictated by: Dictated on workstation # [id number]
--- NOTE | 2021-12-22 08:53 | ED Chest Pain ---
General Chief Complaint: Cardiac/General Problems Stated Complaint: LETHARGIC, BILAT LEG SWELLING Nursing Triage Note: PT PRESENTS TO ED WITH COMPLAINTS OF INCREASED SWELLING IN BILAT LEGS AND SOA AND FATIGUE WITH EXERTION X2 DAYS. Source: patient, family Exam Limitations: no limitations History of Present Illness Date Seen by Provider: December 22, 2021 Time Seen by Provider: 08:14 Initial Comments Here with report of swelling of both legs as well as some fatigue and shortness of air that has worsened over the last couple of days. Has chronic left anterior chest pain that is left upper outer near the shoulder. He has had a evaluation in the past for this including heart cath in February of last year which did not show any significant blockage. He was supposed to be started on aspirin and pantoprazole or omeprazole at the time. Patient states that he is not on any blood thinners or aspirin currently and he is not taking anything for reflux disease. Slightly hypertensive today in the 150s and 160s systolic and patient states he is not typically hypertensive. He does smoke and drinks 4-6 beers daily. He still works a full-time job and is on his feet quite a bit. 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 Does have family history of heart disease including heart failure and his family is worried about that with him. States swelling in his legs is worse during the day and gets better overnight. Within 2 hours of being up, though, he has increased swelling in his legs. Timing/Duration: changing over time, 2-3 days Severity/Quality: mild, aching Location: other (Left upper outer chest wall near left shoulder) Radiation: no radiation Activities at Onset: none Prior CP/Workup: cardiac cath, stress test Modifying Factors: improves with rest ASA po DEPUTY SHERIFF K9 HANDLER: No NTG SL DEPUTY SHERIFF K9 HANDLER: No Associated Symptoms: No abdominal pain, No back pain, No diaphoresis, No dizziness, No fever/chills, No nausea/vomiting, No shortness of breath, No weakness Allergies and Home Medications Allergies Uncoded Allergies: steroid eye drop (Allergy, Unknown, affected nervous system, 09/27/19) Patient Home Medication List Home Medication List Reviewed: Yes Aspirin (Aspirin EC) 81 Mg Tablet.dr 81 MG PO DAILY Prescribed by: ROB LESTER on 02/19/21 1130 Gabapentin (Gabapentin) 100 Mg Capsule, 200 MG PO BID, (Reported) Entered as Reported by: FADIA COLLINS on 02/18/21 1813 Hydrocodone Bit/Acetaminophen (Lortab 5 Mg Tablet) 1 Each Tablet, 1 TAB PO Q4- 6HR, (Reported) Entered as Reported by: BEVERLY BLAIR on 10/01/19 0811 Pantoprazole Sodium (Protonix) 40 Mg , 40 MG PO DAILY Prescribed by: ROB LESTER on 02/19/21 1130 Review of Systems Review of Systems Constitutional: see HPI; No chills, No fever EENTM: No Symptoms Reported Respiratory: Denies Cough; Shortness of Air; Denies SOA at Rest Cardiovascular: Chest Pain, Edema; Denies Irregular Heart Rate Gastrointestinal: Denies Nausea, Denies Vomiting Genitourinary: No Symptoms Reported Musculoskeletal: No back pain, No joint pain; muscle pain Skin: No change in color, No lesions Psychiatric/Neurological: No Symptoms Reported Endocrine: No Symptoms Reported Hematologic/Lymphatic: No Symptoms Reported All Other Systems Reviewed Negative Unless Noted: Yes Past Qfkduyj-Poffmg-Nqdomf Hx Patient Social History Tobacco Use?: Yes Tobacco type used: Cigarettes Smoking Status: Current Everyday Smoker Substance use?: No Alcohol Use?: Yes Alcohol type: Beer Alcohol Frequency: Daily Pt feels they are or have been: No Immunizations Up To Date First/Initial COVID19 Vaccinat: NOVEMBER 2020 Second COVID19 Vaccination Kyle: DECEMBER 2020 Third COVID19 Vaccination Date: NOVEMBER 2020 Seasonal Allergies Seasonal Allergies: No Past Medical History Surgery/Hospitalization HX: sx: gallbladder, hernia repair Surgeries: Yes Orthopedic Respiratory: No Cardiac: No Neurological: No Genitourinary: No Gastrointestinal: No Musculoskeletal: Yes Arthritis, Chronic Back Pain Endocrine: No HEENT: No Cancer: No Psychosocial: No Integumentary: No Blood Disorders: No Family Medical History Reviewed Nursing Family Hx Heart Disease Physical Exam Vital Signs Vital Signs - First Documented 12/22/21 07:50 Temp 36.6 Pulse 70 Resp 22 B/P (MAP) 193/94 (127) Pulse Ox 98 Capillary Refill : Less Than 3 Seconds Height, Weight, BMI Height: '" Weight: lbs. oz. kg; 27.00 BMI Method: General Appearance: No Apparent Distress, WD/WN HEENT: PERRL/EOMI, Pharynx Normal Neck: Non Tender, Supple Respiratory: Lungs Clear, Normal Breath Sounds Cardiovascular: Regular Rate, Rhythm, No Murmur Gastrointestinal: Non Tender, Soft Extremity: Normal Range of Motion, Non Tender, Pedal Edema (Mild lower extremity to mid calf. 1+) Neurologic/Psychiatric: Alert, Oriented x3 Skin: Normal Color, Warm/Dry Procedures/Interventions Suture Size: 4-0 Progress/Results/Core Measures Results/Orders Lab Results Laboratory Tests Test 12/22/21 07:48 12/22/21 07:59 Range/Units White Blood Count 7.8 4.3-11.0 10^3/uL Red Blood Count 4.77 4.30-5.52 10^6/uL Hemoglobin 15.6 13.3-17.7 g/dL Hematocrit 45 40-54 % Mean Corpuscular Volume 94 80-99 fL Mean Corpuscular Hemoglobin 33 25-34 pg Mean Corpuscular Hemoglobin Concent 35 32-36 g/dL Red Cell Distribution Width 12.7 10.0-14.5 % Platelet Count 165 130-400 10^3/uL Mean Platelet Volume 11.6 9.0-12.2 fL Immature Granulocyte % (Auto) 0 % Neutrophils (%) (Auto) 69 42-75 % Lymphocytes (%) (Auto) 21 12-44 % Monocytes (%) (Auto) 8 0-12 % Eosinophils (%) (Auto) 1 0-10 % Basophils (%) (Auto) 1 0-10 % Neutrophils # (Auto) 5.4 1.8-7.8 10^3/uL Lymphocytes # (Auto) 1.6 1.0-4.0 10^3/uL Monocytes # (Auto) 0.7 0.0-1.0 10^3/uL Eosinophils # (Auto) 0.1 0.0-0.3 10^3/uL Basophils # (Auto) 0.0 0.0-0.1 10^3/uL Immature Granulocyte # (Auto) 0.0 0.0-0.1 10^3/uL Prothrombin Time 12.8 12.2-14.7 SEC INR Comment 0.9 0.8-1.4 Activated Partial Thromboplast Time 31 24-35 SEC Sodium Level 137 135-145 MMOL/L Potassium Level 4.1 3.6-5.0 MMOL/L Chloride Level 103 98-107 MMOL/L Carbon Dioxide Level 20 L 21-32 MMOL/L Anion Gap 14 5-14 MMOL/L Blood Urea Nitrogen 13 7-18 MG/DL Creatinine 0.79 0.60-1.30 MG/DL Estimat Glomerular Filtration Rate 96 BUN/Creatinine Ratio 16 Glucose Level 99 70-105 MG/DL Calcium Level 9.3 8.5-10.1 MG/DL Corrected Calcium 9.1 8.5-10.1 MG/DL Magnesium Level 1.9 1.6-2.4 MG/DL Total Bilirubin 1.1 H 0.1-1.0 MG/DL Aspartate Amino Transf (AST/SGOT) 18 5-34 U/L Alanine Aminotransferase (ALT/SGPT) 21 0-55 U/L Alkaline Phosphatase 46 40-136 U/L Myoglobin 39.3 10.0-92.0 NG/ML Troponin I < 0.028 <0.028 NG/ML Total Protein 7.4 6.4-8.2 GM/DL Albumin 4.3 3.2-4.5 GM/DL D-Dimer <= 0.27 0.00-0.49 UG/ML B-Type Natriuretic Peptide 36.8 <100.0 PG/ML My Orders Orders - MARIA LUISA MCGREGOR MD Ekg Tracing (12/22/21 08:03) Cbc With Automated Diff (12/22/21 08:14) Magnesium (12/22/21 08:14) Chest 1 View, Ap/Pa Only (12/22/21 08:14) Ekg Tracing (12/22/21 08:14) Comprehensive Metabolic Panel (12/22/21 08:14) Myoglobin Serum (12/22/21 08:14) Protime With Inr (12/22/21 08:14) Partial Thromboplastin Time (12/22/21 08:14) O2 (12/22/21 08:14) Monitor-Rhythm Ecg Trace Only (12/22/21 08:14) Lipid Panel (12/23/21 06:00) Ed Iv/Invasive Line Start (12/22/21 08:14) Troponin I Darlene (12/22/21 08:14) Aspirin Chewable Tablet (Baby Aspirin Ch (12/22/21 08:15) Bnp [place] (12/22/21 08:34) Fibrin Degradation Products (12/22/21 08:34) Medications Given in ED Current Medications Medications Dose Ordered Sig/Santino Route Start Time Stop Time Status Last Admin Dose Admin Aspirin 324 mg ONCE ONCE PO 12/22/21 08:15 12/22/21 08:16 DC 12/22/21 08:46 324 MG Vital Signs/I&O 12/22/21 07:50 Temp 36.6 Pulse 70 Resp 22 B/P (MAP) 193/94 (127) Pulse Ox 98 Blood Pressure Mean: 127 Progress Progress Note : Progress Note Seen and evaluated. IV, labs, EKG and chest x-ray ordered. ASA 324 mg p.o. We will check BNP and D-dimer as well as troponin with labs to rule out heart failure, blood clots and cardiac etiology. Heart cath from last year reviewed and is nonconcerning with only minimal disease. He did get aspirin 324 mg p.o. Monitor patient. 0940: No acute findings on x-ray, EKG or labs. There is some concerns that his blood pressure may be a little bit elevated. He may benefit from blood pressure control and or diuretic but neither are emergent. He follows with Dr. Miles. I will have him follow-up with him Friday morning via phone and appointment as needed. I will send a copy of the chart to Dr. Miles. Discharged home with return precautions. Patient and family verbalized understanding of instructions and agreement with plan. I have instructed him to restart PPI as he was instructed to do this after the heart cath last year and it was thought that there may be some reflux issues causing chest pain. He is having very similar chest pain as last year several we will restart that. Initial ECG Impression Date: December 22, 2021 Initial ECG Impression Time: 08:10 Initial ECG Rate: 62 Initial ECG Rhythm: Normal Sinus Comment Sinus rhythm with normal axis. Likely LVH noted. Machine read of possible anterior myocardial infarction although similar EKG findings in V1 through V3 from 02/18/2021. No evidence of ST elevation [place]. Interpreted by me. Diagnostic Imaging Diagonstic Imaging: Xray Plain Films/CT/US/NM/MRI: chest Comments [facility] [place], [place] NAME: KIMBER PICKETT [facility] REC#: [id number] PT STATUS: REG ER : 1950 PHYSICIAN: MARIA LUISA MCGREGOR MD ADMIT DATE: 12/22/21/ER Draft Date of Exam:12/22/21 CHEST 1 VIEW, AP/PA ONLY EXAM: CHEST 1 VIEW, AP/PA ONLY INDICATION: Chest pain. Lethargy. COMPARISON: 02/18/2021. FINDINGS: Normal heart size and central pulmonary vascularity. No focal pulmonary opacity. No pleural effusion or pneumothorax. No acute osseous findings. IMPRESSION: No acute cardiopulmonary findings. Dictated on workstation # [id number] Dict: 12/22/21 0840 Trans: 12/22/21 0842 [facility] [id number] Interpreted by: JOSUE BEACH MD Electronically signed by: Reviewed: Reviewed by Me Departure Impression Primary Impression: Localized swelling of both lower legs Additional Impression: Chest pain Qualified Codes: R07.9 - Chest pain, unspecified Disposition: 01 HOME, SELF-CARE Condition: Improved Departure-Patient Inst. Decision time for Depature: 09:51 Referrals: JENNIE MILES MD (PCP/Family) Primary Care Physician Patient Instructions: Chest Pain, Adult ED, Dependent Edema (DC) Add. Discharge Instructions: All discharge instructions reviewed with patient and/or family. Voiced understanding. You may start eeom-cov-ubcbjtq omeprazole 20 mg daily and use this for the next [address] Torrez's office on Friday morning for recheck and further evaluation and to discuss blood pressure. A copy of the chart was sent to his office. Return for worsening chest pain, breathing problems, weakness, sweating, dizziness, vomiting, persistent swelling that is not resolved with elevation of the legs or other concerns as needed. You should elevate your feet a few times daily to reduce swelling. Minimize sodium in your diet. Otherwise eat a normal diet. Copy Copies To 1: JENNIE MILES MD, TIMOTHY D MD December 22, 2021 08:53
[2021-12-22 10:21] VITALS: BP 125/69
== END 2021-12-22 10:20 | disposition home or self-care (01) ==
LOC: EDUNIT# 07:46 → ER 07:47
DX: M79.89 Other specified soft tissue disorders (principal); G89.29 Other chronic pain; R07.89 Other chest pain; R03.0 Elevated blood-pressure reading, without diagnosis of hypertension; K21.9 Gastro-esophageal reflux disease without esophagitis; T39.016A Underdosing of aspirin, initial encounter; T47.1X6A Underdosing of other antacids and anti-gastric-secretion drugs, initial encounter; F17.210 Nicotine dependence, cigarettes, uncomplicated; Z82.49 Family history of ischemic heart disease and other diseases of the circulatory system; Z91.14 Patient's other noncompliance with medication regimen; Z95.9 Presence of cardiac and vascular implant and graft, unspecified
CPT/HCPCS: 36415; 71045; 80053; 83735; 83874; 83880; 84484; 85025; 85379; 85610; 85730; 93005; 93041

== ENCOUNTER → 2021-12-27 | Outpatient (CLI) | payer OTHER | LOC: LAB 14:46 | PROVIDERS: ATTEND Internal Medicine | DX: R07.9 Chest pain, unspecified (principal) | CPT/HCPCS: 36415; 84484 ==

== ENCOUNTER 2022-01-02 15:28 | Outpatient (CLI) | payer OTHER ==
[~2022-01-02] VITALS: Ht 165.1 cm; Wt 77.1 kg
[2022-01-04] MEDS ORDERED: [UNRECOGNIZED DRUG - CODE] PO (13:07)
== END 2022-01-02 16:09 | disposition home or self-care (01) ==
LOC: PREOP 15:28
PROVIDERS: ATTEND Internal Medicine
DX: Z01.818 Encounter for other preprocedural examination (principal)

== ENCOUNTER 2022-01-04 10:32 | Day surgery (SDC) | payer MEDICARE, OTHER ==
--- NOTE | 2022-01-02 16:16 | HISTORY AND PHYSICAL ---
DATE OF SERVICE: EGD HISTORY AND PHYSICAL HISTORY OF PRESENT ILLNESS: The patient is a 71-year-old white male who developed severe precordial chest pain on 12/22/2021. He presented to the emergency room where blood tests were unremarkable as well as CTA of the chest. There was no evidence for acute coronary syndrome with negative troponin levels and unremarkable ECG. He has had a couple episodes of chest pain since but has been more troubled by epigastric discomfort aggravated by eating and has noted dark stools. He has had no weakness associated with this or lightheadedness. He denies dysphagia. His weight reportedly has been stable. 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 PHYSICAL EXAMINATION: GENERAL: Reveals a white male, appeared to be in mild distress. He had no evidence for pallor. VITAL SIGNS: Weight was stable from 6 months ago at 170.4, blood pressure 160/78. CHEST: Clear. CARDIOVASCULAR: Reveals regular rate and rhythm without S3 or S4. ABDOMEN: Mild epigastric discomfort to palpation is present without rebound or guarding. No mass or organomegaly is noted. Stool in the office was negative for occult blood. ASSESSMENT AND PLAN: For further investigation of severe chest pain, epigastric pain with negative cardiovascular workup and description of melena, the patient is being set up for EGD evaluation on 01/04/2022. Instructions were given. He will abstain from nonsteroidal medication, does not take aspirin and had omeprazole which he is to initiate 20 mg daily. 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
[~2022-01-04] VITALS: Ht 165.1 cm; Wt 77.1 kg
[2022-01-04] MEDS ORDERED: LACTATED RINGERS 1,000 ML IV STA (10:37)
[2022-01-04 10:45] VITALS: BP 160/82
[2022-01-04] MEDS ORDERED: HURRICAINE EXT TUBE (BENZOCAINE) XX PRN (10:45)
--- NOTE | 2022-01-04 11:42 | Pre-Op Note & Conscious Sedat ---
Pre-Operative Progress Note H&P Reviewed The H&P was reviewed, patient examined and no changes noted. Date H&P Reviewed: January 04, 2022 Time H&P Reviewed: 11:42 Conscious Sedation Pre-Proced ASA Score 2 For ASA 3 and 4: Consider anesthesia and medical clearance. Also, for patients with a history of failed moderate sedation consider anesthesia. Airway Lungs Heart ASA score ASA 1: a normal healthy patient ASA 2: a patient with a mild systemic disease (mid diabetes, controlled hypertension, obesity ASA 3: a patient with a severe systemic disease that limits activity (angina, COPD, prior Myocardial infarction) ASA 4: a patient with an incapacitating disease that is a constant threat to life (CHF, renal failure) ASA 5: a moribund patient not expected to survive 24 hrs. (ruptured aneurysm) ASA 6: a declared brain- patient whose organs are being harvested. For emergent operations, add the letter E after the classification Mallampati Classification Grade 2 Sedation Plan Analgesia, Amnesia, Plan communicated to team members, Discussed options with patient/fam, Discussed risks with patient/fam The patient is an appropriate candidate to undergo the planned procedure, sedation, and anesthesia. The patient immediately re-assessed prior to indication. JENNIE GALICIA MD January 04, 2022 11:42
[2022-01-04] MEDS ORDERED: MIDAZOLAM 2 MG/2 ML (VERSED) VIAL ONE (11:45)
[2022-01-04] MEDS ORDERED: proPOfol 200 MG/20 ML (DIPRIVAN) VIAL IV ONE (11:45)
[2022-01-04 12:12] VITALS: BP 145/65
[2022-01-04 12:27] VITALS: BP 145/70
[2022-01-04] MEDS ORDERED: [UNRECOGNIZED DRUG - CODE] PO (13:07)
--- NOTE | 2022-01-04 13:11 | Anesthesia-General Post-Op ---
MAC Patient Condition Mental Status/LOC: Same as Preop Cardiovascular: Satisfactory Nausea/Vomiting: Absent Respiratory: Satisfactory Pain: Controlled Complications: Absent Post Op Complications Complications None Follow Up Care/Instructions Patient Instructions None needed. Anesthesiology Discharge Order Discharge Order Patient is doing well, no complaints, stable vital signs, no apparent adverse anesthesia problems. No complications reported per nursing. ANAND BENITES CRNA January 04, 2022 13:11
--- NOTE | 2022-01-04 21:34 | OPERATIVE REPORT ---
DATE OF SERVICE: EGD SUMMARY INDICATION FOR EGD: Epigastric pain, melena, precordial chest pain, negative cardiovascular workup. The patient was placed in the left lateral decubitus position. The endoscope was inserted into the oral cavity and under direct visualization, esophagus was intubated. The endoscope was passed down the esophagus through the stomach and second portion of the duodenum. Careful inspection was made as the endoscope was withdrawn. FINDINGS: Present in the posterior hypopharynx were some pale-appearing nodules suspicious for some lymphoid hyperplasia could not, however, rule out underlying Jimena. Similar findings were noted in the proximal and mid esophagus, but not the distal esophagus. Brushings for Jimena were obtained. Otherwise, the posterior pharynx, arytenoid aperture and true and false vocal folds as well as epiglottis were unremarkable. No other esophageal abnormalities were noted. The Z line was distinct. There was some mild erythema without evidence for ulceration, rings, webs, strictures or extrinsic compression. Biopsies obtained and submitted for histopathology from the Z-line. The cardia, fundus, antrum, pylorus, pyloric channel, duodenal bulb and second portion of the duodenum were unremarkable. ASSESSMENT: Questionable Jimena esophagitis, lymphoid hyperplasia is probably a little more likely, but biopsies and brushings for fungal culture are obtained. No other abnormalities noted on today's procedure. Job ID: [id number] DocumentID: [id number] Dictated Date: 01/04/2022 12:06:32 Quality Assurance Consultant Date: 01/04/2022 21:33:17 Dictated By: JENNIE GALICIA MD
== END 2022-01-04 13:14 | disposition home or self-care (01) ==
LOC: ENDO 10:32
PROVIDERS: ATTEND Internal Medicine
DX: K29.50 Unspecified chronic gastritis without bleeding (principal); K20.90 Esophagitis, unspecified without bleeding; K92.1 Melena; M19.90 Unspecified osteoarthritis, unspecified site; M54.2 Cervicalgia; Z79.899 Other long term (current) drug therapy
CPT/HCPCS: 87101

== ENCOUNTER 2022-05-25 08:32 | Emergency (ER) | payer OTHER, MEDICARE ==
[~2022-05-25] VITALS: Ht 162 cm; Wt 63.0 kg
[~2022-05-25 08:32] MED LIST changes: +[UNRECOGNIZED DRUG - CODE] PO
[2022-05-25] MEDS ORDERED: fentaNYL INJ 100 MCG/2 ML AMP IVP ONE (09:00)
--- NOTE | 2022-05-25 09:03 | ED Abdominal Pain ---
General Chief Complaint: Abdominal/GI Problems Stated Complaint: ABD PAIN/NAUSEA Nursing Triage Note: PT AMB TO [facility] PT CO OF L LOWER ABD PAIN STARTED ABOUT 0100 THIS AM, PT STATES HAS NAUSEA AND FEELS COLD. PT DENIES DIFF W URINATION. STATES HAD NORMAL BM THIS AM Source of Information: Patient Exam Limitations: No Limitations History of Present Illness Date Seen by Provider: May 25, 2022 Time Seen by Provider: 08:38 Initial Comments This is 71-year-old gentleman presents to the emergency room by private vehicle with complaints of left lower quadrant pain that started around 0100 this morning. Onset was rather abrupt and intense. He states the pain is stabbing in nature and he rates it as 12/10. Patient took a hydrocodone this morning but it did not alleviate the pain. He reports a normal bowel movement this morning and noted no changes with stool or urine. He does have nausea and chills without known fever. He reports any movement exacerbates the pain. He has his jeans unbuttoned and unzipped for comfort. He reports recently being treated for urinary tract infection. He is mildly hypertensive, and vital signs are otherwise normal. He has noted no bulges in the inguinal canal or scrotum. Patient admits to drinking 2 beverages of scotch daily. Dr. Miles is his primary care provider. Allergies and Home Medications Allergies Uncoded Allergies: steroid eye drop (Allergy, Unknown, affected nervous system, 09/27/19) Patient Home Medication List Home Medication List Reviewed: Yes Hydrocodone Bit/Acetaminophen (Lortab 5 Mg Tablet) 1 Each Tablet, 1 TAB PO Q4- 6HR, (Reported) Entered as Reported by: BEVERLY BLAIR on 10/01/19 0811 Hyoscyamine Sulfate (Ed-Spaz) 0.125 Mg Tab.rapdis, 0.125 MG PO NEEDED Prescribed by: JENNIE MILES on 01/04/22 1307 Pantoprazole Sodium (Protonix) 40 Mg , 40 MG PO DAILY Prescribed by: ROB LESTER on 02/19/21 1130 Review of Systems Review of Systems Constitutional: see HPI EENTM: No Symptoms Reported Respiratory: No Symptoms Reported Cardiovascular: No Symptoms Reported Gastrointestinal: See HPI Genitourinary: No Symptoms Reported Musculoskeletal: no symptoms reported Skin: no symptoms reported Psychiatric/Neurological: No Symptoms Reported Endocrine: No Symptoms Reported Hematologic/Lymphatic: No Symptoms Reported Past Lhivina-Mjlbav-Zcqulm Hx Patient Social History Tobacco Use?: Yes Tobacco type used: Cigarettes Smoking Status: Current Everyday Smoker Substance use?: No Alcohol Use?: Yes Alcohol type: Hard Liquor Alcohol Frequency: Daily Pt feels they are or have been: No Immunizations Up To Date First/Initial COVID19 Vaccinat: 2020 Second COVID19 Vaccination Kyle: 2020 Third COVID19 Vaccination Date: YES Seasonal Allergies Seasonal Allergies: No Past Medical History Surgery/Hospitalization HX: sx: gallbladder, hernia repair Surgeries: Yes (HAITAL HERNIA/LEFT HAND/LEFT ELBOW/HEART CATH 2020-) Abdominal (Hiatal hernia), Gallbladder, Orthopedic (Carpal tunnel, elbow surgery, hand surgery) Respiratory: No Cardiac: Yes ( BILAT SWELLING LOWER EXT EKG DONE- FINE) High Cholesterol, Hypertension Neurological: No (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 oz. kg; 24.00 BMI Method: General Appearance: WD/WN, no apparent distress, thin HEENT: PERRL/EOMI, normal ENT inspection Neck: normal inspection Respiratory: lungs clear, normal breath sounds, no respiratory distress Cardiovascular: regular rate, rhythm, no edema, no murmur Gastrointestinal: normal bowel sounds, soft, no organomegaly, tenderness (Left lower quadrant with positive Rovsing's); No hernia, No mass Extremities: normal inspection, no pedal edema Neurologic/Psychiatric: no motor/sensory deficits, alert, normal mood/affect, oriented x 3 Skin: normal color, warm/dry Procedures/Interventions Suture Size: 4-0 Progress/Results/Core Measures Results/Orders Lab Results Laboratory Tests Test 05/25/22 08:58 05/25/22 09:57 Range/Units White Blood Count 9.6 4.3-11.0 10^3/uL Red Blood Count 4.11 L 4.30-5.52 10^6/uL Hemoglobin 13.7 13.3-17.7 g/dL Hematocrit 39 L 40-54 % Mean Corpuscular Volume 95 80-99 fL Mean Corpuscular Hemoglobin 33 25-34 pg Mean Corpuscular Hemoglobin Concent 35 32-36 g/dL Red Cell Distribution Width 13.3 10.0-14.5 % Platelet Count 166 130-400 10^3/uL Mean Platelet Volume 12.5 H 9.0-12.2 fL Immature Granulocyte % (Auto) 0 % Neutrophils (%) (Auto) 76 H 42-75 % Lymphocytes (%) (Auto) 15 12-44 % Monocytes (%) (Auto) 7 0-12 % Eosinophils (%) (Auto) 1 0-10 % Basophils (%) (Auto) 0 0-10 % Neutrophils # (Auto) 7.3 1.8-7.8 10^3/uL Lymphocytes # (Auto) 1.5 1.0-4.0 10^3/uL Monocytes # (Auto) 0.7 0.0-1.0 10^3/uL Eosinophils # (Auto) 0.1 0.0-0.3 10^3/uL Basophils # (Auto) 0.0 0.0-0.1 10^3/uL Immature Granulocyte # (Auto) 0.0 0.0-0.1 10^3/uL Sodium Level 136 135-145 MMOL/L Potassium Level 3.8 3.6-5.0 MMOL/L Chloride Level 100 98-107 MMOL/L Carbon Dioxide Level 23 21-32 MMOL/L Anion Gap 13 5-14 MMOL/L Blood Urea Nitrogen 21 H 7-18 MG/DL Creatinine 0.77 0.60-1.30 MG/DL Estimat Glomerular Filtration Rate 96 BUN/Creatinine Ratio 27 Glucose Level 102 70-105 MG/DL Calcium Level 9.1 8.5-10.1 MG/DL Corrected Calcium 9.3 8.5-10.1 MG/DL Total Bilirubin 0.8 0.1-1.0 MG/DL Aspartate Amino Transf (AST/SGOT) 16 5-34 U/L Alanine Aminotransferase (ALT/SGPT) 22 0-55 U/L Alkaline Phosphatase 36 L 40-136 U/L C-Reactive Protein High Sensitivity 0.38 0.00-0.50 MG/DL Total Protein 6.3 L 6.4-8.2 GM/DL Albumin 3.8 3.2-4.5 GM/DL Lipase 33 8-78 U/L Serum Alcohol < 10 <10 MG/DL Urine Color YELLOW Urine Clarity CLEAR Urine pH 5.0 5-9 Urine Specific Weidman 1.025 H 1.016-1.022 Urine Protein NEGATIVE NEGATIVE Urine Glucose (UA) NEGATIVE NEGATIVE Urine Ketones 2+ H NEGATIVE Urine Nitrite NEGATIVE NEGATIVE Urine Bilirubin NEGATIVE NEGATIVE Urine Urobilinogen 0.2 < = 1.0 MG/DL Urine Leukocyte Esterase NEGATIVE NEGATIVE Urine RBC (Auto) NEGATIVE NEGATIVE Urine RBC NONE /HPF Urine WBC NONE /HPF Urine Squamous Epithelial Cells NONE /HPF Urine Crystals NONE /LPF Urine Bacteria NEGATIVE /HPF Urine Casts NONE /LPF Urine Mucus SMALL H /LPF Urine Culture Indicated NO My Orders Orders - ANTONELLA ALARCON MD Ed Iv/Invasive Line Start (05/25/22 08:38) Cbc With Automated Diff (05/25/22 08:38) Comprehensive Metabolic Panel (05/25/22 08:38) Hs C Reactive Protein (05/25/22 08:38) Lipase (05/25/22 08:38) Ua Culture If Indicated (05/25/22 08:38) Fentanyl Inj (Sublimaze Injection) (05/25/22 09:00) Alcohol (05/25/22 09:10) Lactated Ringers (Lr 1000 Ml Iv Solution (05/25/22 09:30) Ct Abdomen/Pelvis W (05/25/22 10:30) Iohexol Injection (Omnipaque 350 Mg/Ml 1 (05/25/22 10:45) Received Contrast (Hold Metformin- Contr (05/25/22 10:45) Ns (Ivpb) (Sodium Chloride 0.9% Ivpb Bag (05/25/22 10:45) Ketorolac Injection (Toradol Injection) (05/25/22 12:00) Medications Given in ED Current Medications Medications Dose Ordered Sig/Santino Route Start Time Stop Time Status Last Admin Dose Admin Fentanyl Citrate 50 mcg ONCE ONCE IVP 05/25/22 09:00 05/25/22 09:01 DC 05/25/22 09:06 50 MCG Iohexol 100 ml ONCE ONCE IV 05/25/22 10:45 05/25/22 10:46 DC 05/25/22 10:44 100 ML Ketorolac Tromethamine 30 mg ONCE ONCE IVP 05/25/22 12:00 05/25/22 12:01 DC 05/25/22 11:56 30 MG Lactated Ringer's 1,000 ml @ 0 mls/hr Q0M ONCE IV 05/25/22 09:30 05/25/22 09:31 DC 05/25/22 09:36 1,000 MLS/HR Sodium Chloride 100 ml ONCE ONCE IV 05/25/22 10:45 05/25/22 10:46 DC 05/25/22 10:44 100 ML Vital Signs/I&O 05/25/22 05/25/22 08:45 12:01 Temp 36.0 Pulse 84 62 Resp 16 16 B/P (MAP) 145/77 (99) 143/77 Pulse Ox 95 Blood Pressure Mean: 99 Progress Progress Note #1: Time: 09:09 Progress Note Patient was interviewed and examined shortly after arrival. He initially declined treatment for nausea and pain, but later requested pain medication. Labs are pending at this time. Progress Note #2: Progress Note CT scan revealed hydronephrosis and hydroureter on the left. No ureteral stone was identified. Patient perhaps had a stone that had recently passed. He was additionally treated with Toradol. Pain improved and he was discharged home. Since he has had 2 such episodes of similar symptoms, I recommended that he seek referral to a urologist. See discharge instructions for further i discussion. Diagnostic Imaging Diagonstic Imaging: CT Plain Films/CT/US/NM/MRI: abdomen, pelvis Comments CT scan viewed by me and report reviewed. See report below: NAME: [facility] REC#: [id number] PT STATUS: REG ER : 1950 PHYSICIAN: ANTONELLA ALARCON MD ADMIT DATE: 05/25/22/ER Signed Date of Exam:05/25/22 CT ABDOMEN/PELVIS W EXAMINATION: CT abdomen and pelvis with intravenous contrast. TECHNIQUE: Multiple contiguous axial images were obtained through the abdomen and pelvis after the uneventful administration of intravenous contrast. All CT scans use one or more of the following dose optimizing techniques: automated exposure control, MA and/or KvP adjustment based on patient size and exam type or iterative reconstruction. HISTORY: Left lower quadrant abdominal pain. Nausea. Chills. COMPARISON: None available. FINDINGS: The heart is unremarkable. The included lung bases are clear. There is mild left-sided hydroureteronephrosis. No obstructing calculi are seen. Scattered bilateral nonobstructing calculi are seen in the left kidney measuring up to 0.5 cm. Mild perinephric fat stranding is seen bilaterally. No solid renal mass is present. The urinary bladder is moderately distended. No bladder calculi are seen. The liver, spleen, pancreas, and adrenal glands have a normal appearance. The gallbladder is surgically absent. The portal vein is patent. There is no pathologically enlarged mesenteric or retroperitoneal adenopathy. The bowel loops are nondilated. The appendix is visualized in the right lower quadrant and has a normal appearance. There is no free fluid or free air. No acute osseous abnormalities. There is calcified aortic and iliac atherosclerotic plaque without aneurysm. There is no free air, loculated collection, or adenopathy in the pelvis. IMPRESSION: 1. Mild left-sided hydroureteronephrosis. No obstructing calculi are seen. Findings may represent a recently passed calculus versus ascending urinary tract infection. 2. Scattered nonobstructing calculi in the left kidney. Dictated by: Dictated on workstation # [id number] Dict: 05/25/22 1052 Trans: 05/25/22 1100 [id number] Interpreted by: SIMA KINGSTON DO Electronically signed by: SIMA KINGSTON DO 05/25/22 1100 Departure Impression Primary Impression: Left lower quadrant pain Additional Impression: Hydroureter, left Disposition: 01 HOME, SELF-CARE Condition: Improved Departure-Patient Inst. Decision time for Depature: 11:47 Referrals: JENNIE MILES MD (PCP/Family) Primary Care Physician KETTY MULLIGAN MD Patient Instructions: Abdominal Pain, Adult ED, Kidney Stone Diet, Kidney Stone, Adult ED Add. Discharge Instructions: The exact cause of your pain is uncertain based on the work-up in the ER today. However, it is suspected that you had a kidney stone that has passed. You may use ibuprofen up to 600 mg every 6 hours as needed. You may add Tylenol (acetaminophen) up to 1000 mg every 6 hours or your hydrocodone if needed for additional pain relief. Drink plenty of clear liquids to stay well-hydrated. Work on tapering off your alcohol consumption. See the information attached regarding kidney stones and kidney stone diet. Follow-up with your primary care provider soon as possible. Since you have had multiple episodes of similar pain, please seek referral to a urologist such as Dr. Mulligan. Return to the ER if you have worsening symptoms despite following these instructions. All discharge instructions reviewed with patient and/or family. Voiced understanding. Copy Copies To 1: JENNIE MILES MD Copies To 2: KETTY MULLIGAN MD, JOSHUA T MD May 25, 2022 09:03
[2022-05-25 09:10] LABS: BASOPHILS % (AUTO) 0 % (0-10); EOSINOPHILS # (AUTO) 0.1 10^3/uL (0.0-0.3); EOSINOPHILS % (AUTO) 1 % (0-10); HEMATOCRIT 39 % (40-54); HEMOGLOBIN 13.7 g/dL (13.3-17.7); LYMPHOCYTES # (AUTO) 1.5 10^3/uL (1.0-4.0); LYMPHOCYTES % (AUTO) 15 % (12-44); MEAN CORPUSCULAR HEMOGLOBIN 33 pg (25-34); MEAN CORPUSCULAR HGB CONC 35 g/dL (32-36); MEAN CORPUSCULAR VOLUME 95 fL (80-99); MEAN PLATELET VOLUME 12.5 fL (9.0-12.2); MONOCYTES # (AUTO) 0.7 10^3/uL (0.0-1.0); MONOCYTES % (AUTO) 7 % (0-12); NEUTROPHILS # (AUTO) 7.3 10^3/uL (1.8-7.8); NEUTROPHILS % (AUTO) 76 % (42-75); PLATELET COUNT 166 10^3/uL (130-400); WHITE BLOOD COUNT 9.6 10^3/uL (4.3-11.0)
[2022-05-25 09:29] LABS: ALBUMIN 3.8 GM/DL (3.2-4.5); BILIRUBIN,TOTAL 0.8 MG/DL (0.1-1.0); CALCIUM 9.1 MG/DL (8.5-10.1); CREATININE SERUM 0.77 MG/DL (0.60-1.30); POTASSIUM 3.8 MMOL/L (3.6-5.0); TOTAL PROTEIN 6.3 GM/DL (6.4-8.2)
[2022-05-25] MEDS ORDERED: LACTATED RINGERS 1,000 ML IV ONE (09:30)
[2022-05-25 10:06] LABS: BILIRUBIN,URINE NEGATIVE (NEGATIVE); CLARITY,URINE CLEAR; COLOR,URINE YELLOW; GLUCOSE, URINE (UA) NEGATIVE (NEGATIVE); KETONES,URINE 2+ (NEGATIVE); LEUKOCYTE ESTERASE ,URINE NEGATIVE (NEGATIVE); NITRITE,URINE NEGATIVE (NEGATIVE); PROTEIN,URINE NEGATIVE (NEGATIVE)
[2022-05-25 10:16] LABS: BACTERIA,URINE NEGATIVE /HPF
[2022-05-25] MEDS ORDERED: NS 100 ML (IVPB) BAG IV ONE (10:45)
[2022-05-25] MEDS ORDERED: HOLD METFORMIN - RECEIVED CONTRAST 20 ML VIAL IV SCH (10:45)
[2022-05-25] MEDS ORDERED: IOHEXOL 350 MG/ML 100 ML (OMNIPAQUE 350) VIAL IV ONE (10:45)
--- NOTE | 2022-05-25 11:00 | Diagnostic Imaging Report ---
EXAMINATION: CT abdomen and pelvis with intravenous contrast. TECHNIQUE: Multiple contiguous axial images were obtained through the abdomen and pelvis after the uneventful administration of intravenous contrast. All CT scans use one or more of the following dose optimizing techniques: automated exposure control, MA and/or KvP adjustment based on patient size and exam type or iterative reconstruction. HISTORY: Left lower quadrant abdominal pain. Nausea. Chills. COMPARISON: None available. FINDINGS: The heart is unremarkable. The included lung bases are clear. There is mild left-sided hydroureteronephrosis. No obstructing calculi are seen. Scattered bilateral nonobstructing calculi are seen in the left kidney measuring up to 0.5 cm. Mild perinephric fat stranding is seen bilaterally. No solid renal mass is present. The urinary bladder is moderately distended. No bladder calculi are seen. The liver, spleen, pancreas, and adrenal glands have a normal appearance. The gallbladder is surgically absent. The portal vein is patent. There is no pathologically enlarged mesenteric or retroperitoneal adenopathy. The bowel loops are nondilated. The appendix is visualized in the right lower quadrant and has a normal appearance. There is no free fluid or free air. No acute osseous abnormalities. There is calcified aortic and iliac atherosclerotic plaque without aneurysm. There is no free air, loculated collection, or adenopathy in the pelvis. IMPRESSION: 1. Mild left-sided hydroureteronephrosis. No obstructing calculi are seen. Findings may represent a recently passed calculus versus ascending urinary tract infection. 2. Scattered nonobstructing calculi in the left kidney. Dictated by: Dictated on workstation # [id number]
[2022-05-25] MEDS ORDERED: KETOROLAC 30 MG/ML VIAL IVP ONE (12:00)
[2022-05-25 12:01] VITALS: BP 143/77
== END 2022-05-25 12:01 | disposition home or self-care (01) ==
LOC: EDUNIT# 08:32 → ER 08:34
DX: N13.4 Hydroureter (principal); F17.210 Nicotine dependence, cigarettes, uncomplicated; Z90.49 Acquired absence of other specified parts of digestive tract; Z28.310 Unvaccinated for COVID-19
CPT/HCPCS: 74177; 80053; 81000; 83690; 85025; 86141; 99284; G0480; 36415; 80320

== ENCOUNTER 2022-10-02 14:53 | Emergency (ER) | payer MEDICARE, OTHER ==
[~2022-10-02] VITALS: Ht 165 cm; Wt 58.9 kg
[2022-10-02 15:29] LABS: ALBUMIN 4.3 GM/DL (3.2-4.5); POTASSIUM 4.2 MMOL/L (3.6-5.0)
[2022-10-02 15:30] LABS: CALCIUM 9.1 MG/DL (8.5-10.1)
[2022-10-02] MEDS ORDERED: morphine INJ 10 MG/ML 1ML (SYR OR VIAL) IVP ONE (15:30)
[2022-10-02] MEDS ORDERED: NITROGLYCERIN 0.4 MG SL TABS BTL 25'S SL PRN ×3 (15:30)
[2022-10-02] MEDS ORDERED: ASPIRIN 81 MG CHEW (CHILDREN'S ASA) PO ONE (15:30)
[2022-10-02 15:32] LABS: TOTAL PROTEIN 7.4 GM/DL (6.4-8.2)
[2022-10-02 15:33] LABS: BILIRUBIN,TOTAL 0.5 MG/DL (0.1-1.0)
[2022-10-02] MEDS ORDERED: morphine INJ 10 MG/ML 1ML (SYR OR VIAL) ONE (15:33)
[2022-10-02] MEDS ORDERED: morphine INJ 10 MG/ML 1ML (SYR OR VIAL) IVP STA (15:33)
[2022-10-02 15:34] LABS: INR 0.9 (0.8-1.4); PROTHROMBIN TIME PATIENT 12.9 SEC (12.2-14.7)
[2022-10-02 15:35] LABS: BASOPHILS % (AUTO) 0 % (0-10); CREATININE SERUM 0.82 MG/DL (0.60-1.30); EOSINOPHILS # (AUTO) 0.1 10^3/uL (0.0-0.3); EOSINOPHILS % (AUTO) 1 % (0-10); HEMATOCRIT 43 % (40-54); LYMPHOCYTES # (AUTO) 0.9 10^3/uL (1.0-4.0); LYMPHOCYTES % (AUTO) 8 % (12-44); MEAN CORPUSCULAR HEMOGLOBIN 33 pg (25-34); MEAN CORPUSCULAR HGB CONC 35 g/dL (32-36); MEAN CORPUSCULAR VOLUME 94 fL (80-99); MEAN PLATELET VOLUME 12.9 fL (9.0-12.2); MONOCYTES # (AUTO) 0.6 10^3/uL (0.0-1.0); MONOCYTES % (AUTO) 5 % (0-12); NEUTROPHILS % (AUTO) 84 % (42-75); PLATELET COUNT 164 10^3/uL (130-400); WHITE BLOOD COUNT 11.9 10^3/uL (4.3-11.0)
--- NOTE | 2022-10-02 15:36 | ED Abdominal Pain ---
General Chief Complaint: Chest Pain Stated Complaint: CHEST PAINS | NAUSEA Nursing Triage Note: PT TO RM 10 WITH COMPLAINT OF CP, EPIGASTRIC PAIN THAT RADIATES DOWN. STATES STARTED THIS MORNING. Source of Information: Patient, Old Records Exam Limitations: No Limitations History of Present Illness Date Seen by Provider: Oct 02, 2022 Time Seen by Provider: 15:17 Initial Comments This 71-year-old gentleman presents to the emergency room with primary complaint of chest pain. However, on further inquiry and examination, this appears to be more of an upper abdominal pain that radiates up into the chest and around the right side into the flank. He is status post cholecystectomy. He has nausea without vomiting. It hurts to move and breathe. He has had intermittent mild abdominal pain chronically but this morning his pain became very severe. He denies any history of cardiac problems. He has had history of hiatal hernia repair. He also admits to tobacco use and consumption of 2 shots of hard liquor mixed in water every day. His primary care provider is Dr. Lewis. Review of chart notes a cardiac cath in 2020 showing mild coronary artery disease with no obstruction. Allergies and Home Medications Allergies Uncoded Allergies: steroid eye drop (Allergy, Unknown, affected nervous system, 09/27/19) Patient Home Medication List Home Medication List Reviewed: Yes Hydrocodone Bit/Acetaminophen (Lortab 5 Mg Tablet) 1 Each Tablet, 1 TAB PO Q4- 6HR, (Reported) Entered as Reported by: BEVERLY BLAIR on 10/01/19 0811 Hydrocodone/Acetaminophen (Hydrocodone-Acetamin 5-325 mg) 5 Mg-325 Mg Tablet, 1 TAB PO Q4H PRN for PAIN-MODERATE (5-7) Prescribed by: ANTONELLA KIMBALL on 10/02/22 1820 Hyoscyamine Sulfate (Ed-Spaz) 0.125 Mg Tab.rapdis, 0.125 MG PO NEEDED Prescribed by: JENNIE GALICIA on 01/04/22 1307 Ondansetron (Ondansetron Odt) 4 Mg Tab.rapdis, 4 MG SL Q4H PRN for NAUSEA/ VOMITING Prescribed by: ANTONELLA KIMBALL on 10/02/22 1820 Pantoprazole Sodium (Protonix) 40 Mg , 40 MG PO DAILY Prescribed by: ROB LESTER on 02/19/21 1130 Pantoprazole Sodium (Protonix) 40 Mg Tablet.dr, 40 MG PO DAILY Prescribed by: ANTONELLA KIMBALL on 10/02/221819 Sucralfate (Carafate) 1 Gram Tablet, 1 GM PO QID Prescribed by: ANTONELLA KIMBALL on 10/02/221819 Review of Systems Review of Systems Constitutional: no symptoms reported EENTM: No Symptoms Reported Respiratory: See HPI Cardiovascular: See HPI Gastrointestinal: See HPI Genitourinary: No Symptoms Reported Musculoskeletal: no symptoms reported Skin: no symptoms reported Psychiatric/Neurological: No Symptoms Reported Endocrine: No Symptoms Reported Hematologic/Lymphatic: No Symptoms Reported Past Pypduhi-Euwtqx-Bscibz Hx Patient Social History Tobacco Use?: Yes Tobacco type used: Cigarettes Smoking Status: Current Everyday Smoker Use of E-Cig and/or Vaping dev: No Substance use?: No Alcohol Use?: Yes Alcohol type: Hard Liquor (2 shots of hard liquor daily) Alcohol Frequency: Daily Pt feels they are or have been: No Immunizations Up To Date First/Initial COVID19 Vaccinat: 2020 Second COVID19 Vaccination Kyle: 2020 Third COVID19 Vaccination Date: Seasonal Allergies Seasonal Allergies: No Past Medical History Surgery/Hospitalization HX: sx: gallbladder, hernia repair Surgeries: Yes (HIATAL HERNIA/LEFT HAND/LEFT ELBOW/HEART CATH 2020-) Abdominal (Hiatal hernia repair), Cardiac (Angiography 2020, mild CAD, no intervention), Gallbladder, Orthopedic (Hands, elbows) Respiratory: No Cardiac: Yes ( BILAT SWELLING LOWER EXT EKG DONE- FINE) High Cholesterol, Hypertension Neurological: No (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 oz. kg; 21.00 BMI Method: General Appearance: WD/WN, moderate distress HEENT: normal ENT inspection, pharynx normal Neck: normal inspection Respiratory: lungs clear, normal breath sounds, no respiratory distress Cardiovascular: regular rate, rhythm, no edema, no murmur Gastrointestinal: normal bowel sounds, soft; No distended; tenderness (Throughout the upper abdomen and into the right flank) Extremities: normal inspection, no pedal edema Neurologic/Psychiatric: no motor/sensory deficits, alert, normal mood/affect, oriented x 3 Skin: normal color, warm/dry Procedures/Interventions Suture Size: 4-0 Progress/Results/Core Measures Results/Orders Lab Results Laboratory Tests Test 10/02/22 15:22 10/02/22 17:07 Range/Units White Blood Count 11.9 H 4.3-11.0 10^3/uL Red Blood Count 4.51 4.30-5.52 10^6/uL Hemoglobin 15.0 13.3-17.7 g/dL Hematocrit 43 40-54 % Mean Corpuscular Volume 94 80-99 fL Mean Corpuscular Hemoglobin 33 25-34 pg Mean Corpuscular Hemoglobin Concent 35 32-36 g/dL Red Cell Distribution Width 13.4 10.0-14.5 % Platelet Count 164 130-400 10^3/uL Mean Platelet Volume 12.9 H 9.0-12.2 fL Immature Granulocyte % (Auto) 2 % Neutrophils (%) (Auto) 84 H 42-75 % Lymphocytes (%) (Auto) 8 L 12-44 % Monocytes (%) (Auto) 5 0-12 % Eosinophils (%) (Auto) 1 0-10 % Basophils (%) (Auto) 0 0-10 % Neutrophils # (Auto) 10.0 H 1.8-7.8 10^3/uL Lymphocytes # (Auto) 0.9 L 1.0-4.0 10^3/uL Monocytes # (Auto) 0.6 0.0-1.0 10^3/uL Eosinophils # (Auto) 0.1 0.0-0.3 10^3/uL Basophils # (Auto) 0.0 0.0-0.1 10^3/uL Immature Granulocyte # (Auto) 0.2 H 0.0-0.1 10^3/uL Prothrombin Time 12.9 12.2-14.7 SEC INR Comment 0.9 0.8-1.4 Activated Partial Thromboplast Time 24 24-35 SEC Sodium Level 136 135-145 MMOL/L Potassium Level 4.2 3.6-5.0 MMOL/L Chloride Level 103 98-107 MMOL/L Carbon Dioxide Level 21 21-32 MMOL/L Anion Gap 12 5-14 MMOL/L Blood Urea Nitrogen 29 H 7-18 MG/DL Creatinine 0.82 0.60-1.30 MG/DL Estimat Glomerular Filtration Rate 94 BUN/Creatinine Ratio 35 Glucose Level 108 H 70-105 MG/DL Calcium Level 9.1 8.5-10.1 MG/DL Corrected Calcium 8.9 8.5-10.1 MG/DL Magnesium Level 1.9 1.6-2.4 MG/DL Total Bilirubin 0.5 0.1-1.0 MG/DL Aspartate Amino Transf (AST/SGOT) 25 5-34 U/L Alanine Aminotransferase (ALT/SGPT) 30 0-55 U/L Alkaline Phosphatase 45 40-136 U/L Myoglobin 43.9 10.0-92.0 NG/ML Troponin I < 0.028 <0.028 NG/ML C-Reactive Protein High Sensitivity 0.36 0.00-0.50 MG/DL B-Type Natriuretic Peptide 32.3 <100.0 PG/ML Total Protein 7.4 6.4-8.2 GM/DL Albumin 4.3 3.2-4.5 GM/DL Lipase 35 8-78 U/L Urine Color YELLOW Urine Clarity CLEAR Urine pH 5.5 5-9 Urine Specific [place] 1.020 1.016-1.022 Urine Protein NEGATIVE NEGATIVE Urine Glucose (UA) NEGATIVE NEGATIVE Urine Ketones TRACE H NEGATIVE Urine Nitrite NEGATIVE NEGATIVE Urine Bilirubin NEGATIVE NEGATIVE Urine Urobilinogen 0.2 < = 1.0 MG/DL Urine Leukocyte Esterase NEGATIVE NEGATIVE Urine RBC (Auto) NEGATIVE NEGATIVE Urine RBC RARE /HPF Urine WBC RARE /HPF Urine Squamous Epithelial Cells NONE /HPF Urine Crystals NONE /LPF Urine Bacteria TRACE /HPF Urine Casts NONE /LPF Urine Mucus NEGATIVE /LPF Urine Culture Indicated NO My Orders Orders - ANTONELLA ALARCON MD Morphine Injection (Morphine Injection (10/02/22 15:33) Ondansetron Injection (Zofran Injectio (10/02/22 15:45) Morphine Injection (Morphine Injection (10/02/22 15:33) Hs C Reactive Protein (10/02/22 15:37) Ua Culture If Indicated (10/02/22 15:37) Lactated Ringers (Lr 1000 Ml Iv Solution (10/02/22 16:00) Ct Abdomen/Pelvis W (10/02/22 16:26) Iohexol Injection (Omnipaque 350 Mg/Ml 1 (10/02/22 16:30) Received Contrast (Hold Metformin- Contr (10/02/22 16:30) Ns (Ivpb) (Sodium Chloride 0.9% Ivpb Bag (10/02/22 16:30) Pantoprazole Injection (Protonix Injecti (10/02/22 17:00) Lidocaine 2% Viscous 15 Ml (Xylocaine Vi (10/02/22 17:00) Antacid Suspension (Mylanta Suspension (10/02/22 17:00) Medications Given in ED Vital Signs/I&O 10/02/22 10/02/22 14:57 18:30 Temp 36.0 Pulse 67 Resp 25 B/P (MAP) 165/84 (111) 154/73 Pulse Ox 96 O2 Delivery Room Air 10/03/22 00:00 Intake Total 1000 ml Balance 1000 ml Blood Pressure Mean: 111 Progress Progress Note : Progress Note Chest pain work-up was pursued and aspirin was given. Troponin was negative. EKG demonstrated a new left bundle branch block, but this was not pursued as an ACS equivalent as patient's further history made it clear that this was more of an abdominal pain complaint. Additionally, troponin was negative and he had no obstructive coronary artery disease noted on his angiography 2 years ago. The remainder of the cardiopulmonary work-up including CBC, CMP, and chest x-ray were all reviewed by me and were unremarkable. His pain was treated with morphine. CT of the abdomen and pelvis was obtained. No acute cause for his pain was identified. Gastritis, ulcer, duodenitis, or other GI pathology was highly suspected, especially with his history of daily alcohol use for decades. Lipase was negative. Infection was not suspected as temperature, CRP, and WBC were all normal. He was further treated with GI cocktail and Protonix. He had mild improvement in his pain with those therapies. Ultimately, gastritis, ulcer, and/or duodenitis were still within the differential at discharge and he was treated as such. Patient was stable upon discharge, provided prescriptions as below, and was strongly advised to seek endoscopy soon. See discharge instructions for further discussion. Initial ECG Impression Date: Oct 02, 2022 Initial ECG Impression Time: 14:59 Initial ECG Rate: 96 Comment Sinus rhythm with no ischemic ST elevation or depression. New left bundle branch block was noted. No axis deviation. QRSD 156 ms. Diagnostic Imaging Diagonstic Imaging: Xray Plain Films/CT/US/NM/MRI: chest Comments NAME: KIMBER PCIKETT [facility] REC#: [id number] PT STATUS: REG ER : 1950 PHYSICIAN: FEI RHODES ADMIT DATE: 10/02/22/ER Signed Date of Exam:10/02/22 CHEST 1 VIEW, AP/PA ONLY INDICATION: Chest pain COMPARISON: 12/22/2021. FINDINGS: Single frontal view of the chest demonstrates normal heart size and pulmonary vascularity. The lungs are well aerated and clear. No large pleural effusion or pneumothorax is seen. The visualized osseous structures show no acute abnormalities. IMPRESSION: 1. No acute cardiopulmonary process. Dictated by: Dictated on workstation # [id number] Dict: 10/02/22 1553 Trans: 10/02/22 1745 [id number] Interpreted by: MICHAEL PAZ MD Electronically signed by: MICHAEL PAZ MD 10/02/22 1747 Comments NAME: KIMBER PICKETT [facility] REC#: [id number] PT STATUS: REG ER : 1950 PHYSICIAN: ANTONELLA ALARCON MD ADMIT DATE: 10/02/22/ER Signed Date of Exam:10/02/22 CT ABDOMEN/PELVIS W PROCEDURE: CT abdomen and pelvis with contrast. TECHNIQUE: Multiple contiguous axial images were obtained through the abdomen and pelvis after administration of intravenous contrast. Auto Exposure Controls were utilized during the CT exam to meet ALARA standards for radiation dose reduction. All CT scans use one or more of the following dose optimizing techniques: Automated exposure control, MA and/or KvP adjustment based on patient size and exam type or iterative reconstruction. INDICATION: Epigastric pain. COMPARISON: None. FINDINGS: Included portions of the lung bases are clear. CT ABDOMEN: Normal appendix is identified. Small bowel loops are nondistended. Moderate-sized gastric diverticulum is noted. Multiple nonobstructive renal calculi are noted. Some of these may be vascular in nature. No suspicious renal lesions are identified. The adrenal glands, spleen, pancreas, and liver have a normal CT appearance. There is no loculated fluid collection, free fluid, or free air. No abnormal mesenteric or retroperitoneal adenopathy is seen. Osseous structures show no acute abnormalities. There is moderate calcified aortic and arterial atherosclerosis. CT PELVIS: Urinary bladder is unopacified. No calculi are seen within the urinary bladder. There is no loculated fluid collection, free fluid, or free air. No abnormal adenopathy is seen. Osseous structures show no acute abnormalities. IMPRESSION: 1. No acute abnormality is seen within the abdomen or pelvis. 2. Multiple nonobstructive left renal calculi, some of which may be vascular in nature. Dictated by: Dictated on workstation # [id number] Dict: 10/02/22 1647 Trans: 10/02/221745 [id number] Interpreted by: MICHAEL PAZ MD Electronically signed by: MICHAEL PAZ MD 10/02/22 1746 Departure Impression Primary Impression: Upper abdominal pain Additional Impression: Daily consumption of alcohol Disposition: 01 HOME, SELF-CARE Condition: Improved Departure-Patient Inst. Decision time for Depature: 18:18 Referrals: CUONG RODRÍGUEZ BRETT D DO KIDO, TAKAAKI MD SORELL, RYAN C MD (PCP) Primary Care Physician Patient Instructions: Abdominal Pain, Adult ED Add. Discharge Instructions: Gradually taper down on your alcohol consumption. Use your medications as prescribed. Is important to take the antacid (Protonix) every day even if you are not experiencing pain. Use Carafate (sucralfate) 4 times daily. It works best if it is chewed and swallowed or dissolved or crushed and mixed into a small amount of water to make a slurry. It is important that you follow-up with a surgeon as soon as possible for endoscopy. It is preferable that you see a surgeon within 1 week for consultation and to arrange endoscopy. You may use the hydrocodone as prescribed for pain. Please be advised hydrocodone may cause drowsiness so do not operate machinery, make important decisions, or drive while on this medication. Hydrocodone may also cause constipation, so you may wish to use a stool softener such as Colace while on hydrocodone. Do not use any NSAID medications such as ibuprofen, naproxen, or aspirin as these may worsen your stomach issues. Please return to the emergency room if you have worsening symptoms despite following these instructions. Please also schedule an appointment with your primary care provider soon as possible. All discharge instructions reviewed with patient and/or family. Voiced understanding. Scripts Sucralfate (Carafate) 1 Gram Tablet 1 GM PO QID, #120 TAB Chew and swallow or dissolve/crush and mix into 5-10 mL water to make a slurry. Take 30 minutes before meals and bedtime. Prov: ANTONELLA ALARCON MD 10/02/22 Pantoprazole Sodium (Protonix) 40 Mg Tablet.dr 40 MG PO DAILY, #30 TAB Prov: ANTONELLA ALARCON MD 10/02/22 Hydrocodone/Acetaminophen (Hydrocodone-Acetamin 5-325 mg) 5 Mg-325 Mg Tablet 1 TAB PO Q4H PRN for PAIN-MODERATE (5-7), #10 TAB Prov: ANTONELLA ALARCON MD 10/02/22 Ondansetron (Ondansetron Odt) 4 Mg Tab.rapdis 4 MG SL Q4H PRN for NAUSEA/VOMITING, #10 TAB Prov: ANTONELLA ALARCON MD 10/02/22 ANTONELLA ALARCON MD Oct 02, 2022 15:36
[2022-10-02 15:38] LABS: MAGNESIUM 1.9 MG/DL (1.6-2.4)
[2022-10-02] MEDS ORDERED: ONDANSETRON 4 MG/2 ML (SDV) Z0FRAN IVP ONE (15:45)
--- NOTE | 2022-10-02 15:59 | Diagnostic Imaging Report ---
INDICATION: Chest pain COMPARISON: 12/22/2021. FINDINGS: Single frontal view of the chest demonstrates normal heart size and pulmonary vascularity. The lungs are well aerated and clear. No large pleural effusion or pneumothorax is seen. The visualized osseous structures show no acute abnormalities. IMPRESSION: 1. No acute cardiopulmonary process. Dictated by: Dictated on workstation # [id number]
[2022-10-02] MEDS ORDERED: LACTATED RINGERS 1,000 ML IV ONE (16:00)
[2022-10-02] MEDS ORDERED: IOHEXOL 350 MG/ML 100 ML (OMNIPAQUE 350) VIAL IV ONE (16:30)
[2022-10-02] MEDS ORDERED: HOLD METFORMIN - RECEIVED CONTRAST 20 ML VIAL IV SCH (16:30)
[2022-10-02] MEDS ORDERED: NS 100 ML (IVPB) BAG IV ONE (16:30)
--- NOTE | 2022-10-02 16:54 | Diagnostic Imaging Report ---
PROCEDURE: CT abdomen and pelvis with contrast. TECHNIQUE: Multiple contiguous axial images were obtained through the abdomen and pelvis after administration of intravenous contrast. Auto Exposure Controls were utilized during the CT exam to meet ALARA standards for radiation dose reduction. All CT scans use one or more of the following dose optimizing techniques: Automated exposure control, MA and/or KvP adjustment based on patient size and exam type or iterative reconstruction. INDICATION: Epigastric pain. COMPARISON: None. FINDINGS: Included portions of the lung bases are clear. CT ABDOMEN: Normal appendix is identified. Small bowel loops are nondistended. Moderate-sized gastric diverticulum is noted. Multiple nonobstructive renal calculi are noted. Some of these may be vascular in nature. No suspicious renal lesions are identified. The adrenal glands, spleen, pancreas, and liver have a normal CT appearance. There is no loculated fluid collection, free fluid, or free air. No abnormal mesenteric or retroperitoneal adenopathy is seen. Osseous structures show no acute abnormalities. There is moderate calcified aortic and arterial atherosclerosis. CT PELVIS: Urinary bladder is unopacified. No calculi are seen within the urinary bladder. There is no loculated fluid collection, free fluid, or free air. No abnormal adenopathy is seen. Osseous structures show no acute abnormalities. IMPRESSION: 1. No acute abnormality is seen within the abdomen or pelvis. 2. Multiple nonobstructive left renal calculi, some of which may be vascular in nature. Dictated by: Dictated on workstation # [id number]
[2022-10-02] MEDS ORDERED: LIDOCAINE 2% VISCOUS 15 ML UDC PO ONE (17:00)
[2022-10-02] MEDS ORDERED: ANTACID SUSP 30 ML UDC (MYLANTA) PO ONE (17:00)
[2022-10-02] MEDS ORDERED: PANTOPRAZOLE 40 MG (PROTONIX) VIAL IV ONE (17:00)
[2022-10-02 17:10] LABS: BILIRUBIN,URINE NEGATIVE (NEGATIVE); CLARITY,URINE CLEAR; COLOR,URINE YELLOW; GLUCOSE, URINE (UA) NEGATIVE (NEGATIVE); KETONES,URINE TRACE (NEGATIVE); LEUKOCYTE ESTERASE ,URINE NEGATIVE (NEGATIVE); NITRITE,URINE NEGATIVE (NEGATIVE); PH,URINE 5.5 (5-9); PROTEIN,URINE NEGATIVE (NEGATIVE)
[2022-10-02 17:37] LABS: BACTERIA,URINE TRACE /HPF; RBC,URINE RARE /HPF; WBC,URINE RARE /HPF
[2022-10-02] MEDS ORDERED: ACHD5005 PO (18:20)
[2022-10-02] MEDS ORDERED: SUCR1TAB36 PO (18:20)
[2022-10-02] MEDS ORDERED: PANT40TA2 PO (18:20)
[2022-10-02] MEDS ORDERED: ONDA4TAB11 SL (18:20)
[2022-10-02 18:30] VITALS: BP 154/73
== END 2022-10-02 18:30 | disposition home or self-care (01) ==
LOC: EDUNIT# 14:53 → ER 14:55
DX: R10.13 Epigastric pain (principal); F17.210 Nicotine dependence, cigarettes, uncomplicated; Z90.49 Acquired absence of other specified parts of digestive tract; Z87.738 Personal history of other specified (corrected) congenital malformations of digestive system
CPT/HCPCS: 36415; 71045; 74177; 80053; 81000; 83690; 83735; 83874; 83880; 84484; 85025; 85610; 85730; 86141; 93005; 93041; 96361; 96374; 96375